=== PATIENT | female | born 1950 | race Caucasian/White ===

== ENCOUNTER → 2018-04-09 | Outpatient (CLI) | payer MEDICARE, BC | LOC: M WUC 14:35 | DX: M51.36 Other intervertebral disc degeneration, lumbar region (principal); M85.88 Other specified disorders of bone density and structure, other site | CPT/HCPCS: 72110; 87086 ==

== ENCOUNTER → 2021-05-15 | Outpatient (CLI) | payer MEDICARE, BC ==
--- NOTE | 2021-05-16 16:00 | DEXAMM ---
INDICATION: OTH DISORDER BONE DENSITY AND STRUCTURE, UNSPECIFIED SITE. COMPARISON: 03/15/2019, 07/02/2016. TECHNIQUE: Bone density was measured using dual-energy x-ray absorptiometry (DEXA). FINDINGS: AP SPINE L1-L4 BMD 1.174 g/cm2 Young Adult T-Score -0.2 Age Matched Z-Score 1.5. LT FEMUR, TOTAL BMD 0.838 g/cm2 Young Adult T-Score -1.3 Age Matched Z-Score 0.2. LT NECK BMD 0.725 g/cm2 Young Adult T-Score -2.3 Age Matched Z-Score -0.5. RT FEMUR, TOTAL BMD 0.854 g/cm2 Young Adult T-Score -1.2 Age Matched Z-Score 0.4. RT NECK BMD 0.733 g/cm2 Young Adult T-Score -2.2 Age Matched Z-Score -0.4. IMPRESSION: There is normal bone density of the spine. There is low bone density of the left hip. There is low bone density of the right hip. The density of the spine has increased 11.9% since the initial exam on 07/02/2016. The density of the spine increased 7.3% since most recent exam on 03/15/2019. The density of the left hip has decreased 4.1% since initial exam on 07/02/2016. The density of the left hip has decreased 0.5% since most recent exam on 03/15/2019. The density of the right hip has decreased 2.5% since the initial exam on 07/02/2016. The density of the right hip has increased 1.2% since the most recent exam on 03/15/2019. FOLLOW-UP: Recommendation for the next bone density exam: 2 years. <Electronically signed by Phil Bal > 05/16/21 1418
== END ==
LOC: M WHC 09:37
PROVIDERS: ATTEND Family Medicine
DX: M85.89 Other specified disorders of bone density and structure, multiple sites (principal)

== ENCOUNTER 2021-06-19 11:53 | Emergency (ER) | payer MEDICARE, BC ==
[~2021-06-19] VITALS: Ht 170.2 cm; Wt 62.8 kg
--- OUTSIDE RECORDS SUMMARY | 2021-06-19 11:59 | CCD | Continuity of Care Document ---
Author Author Jenny Humphries M.D. Organization Unknown Address [address] [place] [address] [address] [place] [address] Phone [phone] Care Team Providers Care Snout Puller Name Role Phone [facility] - [facility] Gyne[facility] AUTM [phone] HCP given AUTM Unavailable Dave Lee MD AUTM [phone] [facility] - Die Developer AUT [phone] Problems Active Problems Provider Date Essential hypertension Padilla Humphries M.D. Onset: 07/02/20 16 Degeneration of cervical intervertebral disc Padilla Humphries M.D. Onset: 07/02/2016 Dysthymia Padilla Humphries M.D. Onset: 07/02/2016 History of thromboembolism of vein Padilla Humphries M.D. 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 Onset: 12/10/2017 Pure hypercholesterolemia Padilla Humphries M.D. Onset: 01/12 Recurrent major depressive episodes Padilla Humphries M.D. On set: 04/09/2020 Social History Type Date Description Comments Sex Unknown Tobacco Use Start: Unknown End: Unknown Former Cigarette Smo ker quit smoking in 1999 Smoking Status Reviewed: 04/09/20 Former Cigarette Smoker quit smoking in 1999 Tobacco Use Start: Unknown End: Unknown Patient is a former smoker Allergies, Adverse Reactions, Alerts Description No Known Drug Allergies Medications Active Medications SIG Qnty Indications Ordering Provide r Date Risedronate Sodium 150mg Tablets take 1 tablet monthly, on an empty stomach, with a tall glass of water; do not eat or lie down for 30 minutes afterwards 3tabs M85.[address], M.D. 12/26/2019 Citalopram Hydrobromide 20mg Table ts Take 1/2 Tablet By Mouth Once Daily For Mood 45tabs F33.9 Padilla Humphries M.D. 10/03/2019 Cyclobenzaprine HCL 10mg Tablets 1 tablet 3x/day as needed for muscle spasms 30tabs Kj Humphries rd, M.D. 04/27/2018 Xarelto 20mg Tablets 1 by mouth every day; to prevent blood clots 90tabs I82.402 Padilla Humphries M.D. 07/2018 Z86.718 Z79.01 Intrarosa 6.5mg Insert Insert One Vaginal Insert Vaginally AT Bedtime 84units Padilla Humphries M.D . 11/09/2017 Lisinopril 20mg Tablets Take One Tablet By Mouth Every Morning For High Blood Pressure 90tabs I10 Padilla Mcqueen M.D. 06/29/2017 Vagifem 10mcg Tablets insert 1 tablet intravaginally 2x/wk; taper as able; for atrophic vaginitis 25tabs Padilla Humphries M.D. 05/07/2017 Atorvastatin Calcium 20mg Tablets Take One Tablet By Mouth Every Day To Reduce Cholesterol And Lower Risk Of Heart Disease 90tabs E78.00 Padilla Humphries M.D. 08/18/2016 Voltaren 1% Gel apply 1-2 grams 4x/day to left forefoot; for pain 300gm M79.672 Padilla Humphries M.D. Calcium Soft Chews 5 [id number]-vcc Chewtabs 2 daily Unknown History Medications Amoxicillin/Clavulanate Potassium 875-125mg Tablets 1 by mouth twice a day 20tabs L03.116 Jae Ramirez D. O. 02/14/2021 - 02/24/2021 Immunizations CPT Code Status Date Vaccine Reaction Lot # [id number] Given 10/26/2020 Sars-Cov-2 (Covi d-19) Pfizer Vac mRNA, LNP-S, PF, 30 mcg/ 0.3 mL 14663 Given 10/05/2020 Sars-Cov-2 (Covi d-19) Pfizer Vac mRNA, LNP-S, PF, 30 mcg/ 0.3 mL 63622 Given 07/31/2020 TB Intradermal Test 08/02/20 Read in office - neg; 0 [place] [address] Given 06/27/2020 Influenza Vaccin e Split Virus Preservative Free Im Use (hi-dose) [id number] U-Flu Given 05/31/2019 Influenza,Unspecified 94251 Given 12/01/2018 Shingrix Zoster (Shingles) Vaccine (HZV) Recomb,Subnit,Adjuvanted [id number] 15660 Given 05/11/2018 Shingrix Zoster (Shingles) Vaccine (HZV) Recomb,Subnit,Adjuvanted [id number] 81463 Given 01/12/2018 Pneumococcal Immunization [id number] 62490 Given 08/26/2016 Adacel or Boostrix, TDaP [id number] 48293 Given 07/02/2016 Prevnar 13 [id number] Vital Signs Date Vital Result Comment 04/09/2021 3:11pm BP Systolic 120 mmHg BP Diastolic 80 mmHg Heart Rate 68 /min reg Respiratory Rate 12 /min not laboured Body Temperature 98.5 F forehead Height 68 inches 5'8" w/sandal Weight 140.00 lb w/sandals BMI (Body Mass Index) 21.3 kg/m2 [place] Body Weight 140 lb 03/02/2021 9:48am Body Temperature 97.2 F Results Test Acquired Date Facility Test Result H/L Range Note Lipid Panel 04/26/2021 [facility] Triglycerides Level 33 mg/dL Normal <150 Cholesterol Level 155 mg/dL Normal <200 HDL Cholesterol 75 mg/dL Normal >40 LDL Cholesterol 73 mg/dL Normal <100 Non-HDL-C 80 mg/dL Normal Cholesterol Risk Ratio 2.066 Normal <5 Basic Metabolic Profile 04/26/2021 [facility] Glucose, Fasting 89 mg/dL Normal 70-100 Blood Urea Nitrogen 11 mg/dL Normal 7-18 Creatinine For GFR 0.63 mg/dL Normal 0.55-1.30 Glomerular Filtration Rate > 60.0 Normal >39 1 Sodium Level 137 mEq/L Normal 136-145 Potassium Serum 4.6 mEq/L Normal 3.5-5.1 Chloride Level 103 mEq/L Normal 98-107 Carbon Dioxide Level 30 mEq/L Normal 21-32 Anion Gap 4 mEq/L Low 8-16 Calcium Level 9.2 mg/dL Normal 8.8-10.2 Laboratory test finding 04/26/2021 [facility] Alt/SGPT 34 U/L Normal 12-78 Laboratory test finding 04/24/2021 In House Occult Blood, F I T negative 1 Units are mL/min/1.73 m2 Chronic Kidney Disease Staging per NKF: Stage I & II GFR >=60 Normal to Mildly Decreased Stage III GFR 30-59 Moderately Decreased Stage IV GFR 15-29 Severely Decreased Stage V GFR <15 Very Little GFR Left ESRD GFR <15 on FRONT END SPECIALIST Procedures Date Code Description Status 05/27/2021 87236 Phone Evaluation/Management By Martin kramer 21-30 Min Completed 04/09/2021 36513 Office/Outpatient Established Hi gh MDM 40-54 Min Completed 04/09/2021 66949 Electrocardiogram Complete Compl eted 04/09/202109815 Aspiration And/Or Injection Of G anglion Cyst (S) Any Location Completed 03/02/2021 24944 Office/Outpatient Established Mo d MDM 30-39 Min Completed 02/21/2021 [id number] Mammogram Completed 02/14/2021 74611 Office/Outpatient Established Lo w MDM 20-29 Min Completed 2003 [id number] Colonoscopy Completed Medical Devices Description No Information Available Encounters Type Date Location Provider Dx Diagnosis Office Visit 05/27/2021 9:15a Main Office Padilla Humphries M.D. M85. 80 Oth disrd of bone density and structure, unspecified site Office Visit 04/09/2021 2:45p Main Office Padilla Humphries M.D. Z01. 818 Encounter for other preprocedural examination I10 Essential (primary) hyperten rip Z86.718 Personal history of other ve nous thrombosis and embolism E78.00 Pure hypercholesterolemia, u nspecified M67.441 Ganglion, right hand Z68.21 Body mass index [BMI] 21.0-2 1.9, adult Z79.01 alf (current) use of a nticoagulants Office Visit 03/02/2021 9:30a Main Office Padilla Humphries M.D. M25. 512 Pain in left shoulder M85.80 Oth disrd of bone density an d structure, unspecified site Office Visit 02/14/2021 4:00p Main Office Jae Ramirez D.O. L03.1 16 Cellulitis of left lower limb S80.10xA Contusion of unspecified low er leg, initial encounter Assessments Date Code Description Provider 05/27/2021 M85.80 Other specified diso rders of bone density and structure, unspecified site Padilla Humphries M.D. 04/24/2021 Z12.11 Encounter for screening for nadeen gnant neoplasm of colon Padilla Humphries M.D. 04/09/2021 Z01.818 Encounter for other preprocedura l examination Padilla Humphries M.D. 04/09/2021 I10 Essential (primary) hypertension Padilla Humphries M.D. 04/09/2021 Z86.718 Personal history of other venous thrombosis and embolism Padilla Humphries M.D. 04/09/2021 E78.00 Pure hypercholesterolemia, unspe cified Padilla Humphries M.D. 04/09/2021 M67.441 Ganglion, right hand Fabrizio Humphries M.D. 04/09/2021 Z68.21 Body mass index [BMI] 21.0-21.9, adult Padilla Humphries M.D. 04/09/2021 Z79.01 alf (current) use of antic oagulants Padilla Humphries M.D. 04/05/2021 Z01.818 Encounter for other preprocedura l examination Padilla Humphries M.D. 04/05/2021 I10 Essential (primary) hypertension Padilla Humphries M.D. 04/05/2021 F33.9 Major depressive disorder, recur rent, unspecified Padilla Humphries M.D. 04/05/2021 E78.00 Pure hypercholesterolemia, unspe cified Padilla Humphries M.D. 04/05/2021 Z86.718 Personal history of other venous thrombosis and embolism Padilla Humphries M.D. 03/02/2021 M25.512 Pain in left shoulder Lissette Humphries M.D. 03/02/2021 M85.80 Other specified disorders of bon e density and structure, uns Padilla Humphries M.D. 02/14/2021 L03.116 Cellulitis of left lower limb So Jae guerra D.O. 02/14/2021 S80.10xA Contusion of unspecified lower l eg, initial encounter Jae Ramirez D.O. Plan of Treatment 05/27/2021 - Padilla Humphries M.D.* M85.80 Other specified disorders of bone density and structure, unspecified site* Comments:* While BMD at spine is better, and at R fem neck is unchanged, her L fem neck is considerably worse. However, since last prior DEXA 2yrs ago she essentially went 1 year of it w/o Tx. Discussed option of Denosumab/Prolia vs continuing status quo, and reassessing in 2yrs. Discussed potential inc cost w/ Prolia, need for i njections as well as need to folow it w/ a bisphosphonate b/o risk of rapid BMD loss and inc risk of vertebral fractures after completing Prolia. In the end we decided to continue w/ Prolia and re-evaluate in 18-24 months. If BMD not improving will continue Prolia then. Functional Status Description No Information Available Mental Status Description No Information Available Referrals Description No Information Available
--- OUTSIDE RECORDS SUMMARY | 2021-06-19 11:59 | CCD | Continuity of Care Document ---
Author Author Jenny Humphries M.D. Organization Unknown Address [address] [place] [address] [address] [place] [address] Phone [phone] Care Team Providers Care Bulldogger Name Role Phone [facility] [place] - Obstetric[facility] & Gynecology AUTM [phone] HCP given AUTM Unavailable Dave Lee MD AUTM [phone] [facility] - Geographical Historian AUT [phone] Problems Active Problems Provider Date Essential hypertension [...] End: Unknown Patient is a former smoker Allergies and adverse reactions Description No Known Drug Allergies Medications Active [...] Padilla Humphries M.D. Calcium Soft Chews 5 [id number]-[id number] Chewtabs 2 daily Unknown History Medications Amoxicillin/Clavulanate Potassium 875-125mg Tablets 1 by mouth twice a day 20tabs L03.116 Jae Ramirez D. O. 02/14/2021 - 02/24/2021 Immunizations CPT Code Status Date Vaccine Reaction Lot # [id number] Given 10/26/2020 Sars-Cov-2 (Covi d-19) Pfizer Vac mRNA, LNP-S, PF, 30 mcg/ 0.3 mL 31062 Given 10/05/2020 Sars-Cov-2 (Covi d-19) Pfizer Vac mRNA, LNP-S, PF, 30 mcg/ 0.3 mL 67094 Given 07/31/2020 TB Intradermal Test 08/02/20 Read in office - neg; 0 [place] [address] Given 06/27/2020 Influenza Vaccin e Split Virus Preservative Free Im Use (hi-dose) [id number] U-Flu Given 05/31/2019 Influenza,Unspecified 24990 Given 12/01/2018 Shingrix Zoster (Shingles) Vaccine (HZV) Recomb,Subnit,Adjuvanted [id number] 65941 Given 05/11/2018 Shingrix Zoster (Shingles) Vaccine (HZV) Recomb,Subnit,Adjuvanted [id number] 37657 Given 01/12/2018 Pneumococcal Immunization [id number] 27990 Given 08/26/2016 Adacel or Boostrix, TDaP [id number] 86241 Given 07/02/2016 Prevnar 13 [id number] Vital Signs Date Vital Result Comment 04/09/2021 3:11pm BP Systolic 120 mmHg BP Diastolic 80 mmHg Heart Rate 68 /min reg Respiratory Rate 12 /min not laboured Body Temperature 98.5 F forehead Height 68 inches 5'8" w/sandal Weight 140.00 lb w/sandals BMI (Body Mass Index) 21.3 kg/m2 [place] Body Weight 140 lb 03/02/2021 9:48am Body Temperature 97.2 F Results Test Acquired Date Facility Test Result H/L Range Note Lipid Panel 04/26/2021 [facility] Triglycerides Level 33 mg/dL Normal <150 Cholesterol Level 155 mg/dL Normal <200 HDL Cholesterol 75 mg/dL Normal >40 LDL Cholesterol 73 mg/dL Normal <100 Non-HDL-C 80 mg/dL Normal Cholesterol Risk Ratio 2.066 Normal <5 Basic Metabolic Profile 04/26/2021 [facility] Glucose, Fasting 89 mg/dL Normal 70-100 [...] mg/dL Normal 8.8-10.2 Laboratory test finding 04/26/2021 [facility] Alt/SGPT 34 U/L Normal 12-78 Laboratory test finding 04/24/2021 In House Occult Blood, F I T negative 1 Units are mL/min/1.73 m2 Chronic Kidney Disease Staging per NKF: Stage I & II GFR >=60 Normal to Mildly Decreased Stage III GFR 30-59 Moderately Decreased Stage IV GFR 15-29 Severely Decreased Stage V GFR <15 Very Little GFR Left ESRD GFR <15 on [employer]RAF[employer] DESIGN Procedures Date Code Description Status 06/18/2021 62388 Office/Outpatient Established Lo w MDM 20-29 Min Completed 05/27/2021 14288 Phone Evaluation/Management By Martin kramer 21-30 Min Completed 04/09/2021 75035 Office/Outpatient Established Hi gh MDM 40-54 Min Completed 04/09/2021 70690 Electrocardiogram Complete Compl eted 04/09/202158857 Aspiration And/Or Injection Of G anglion Cyst (S) Any Location Completed 03/02/2021 16968 Office/Outpatient Established Mo d MDM 30-39 Min Completed 02/21/2021 20521500 Mammogram Completed 02/14/2021 85014 Office/Outpatient Established Lo w MDM 20-29 Min Completed 2003 [id number] Colonoscopy Completed Medical Devices Description No Information Available Encounters Type Date Location Provider Dx Diagnosis Office Visit 06/18/2021 9:30a Main Office Padilla Humphries M.D. U07. 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 M25. 512 Pain in left shoulder M85.80 Oth disrd of bone density an d structure, unspecified site Office Visit 02/14/2021 4:00p Main Office Jae Ramirez D.O. L03.1 16 Cellulitis of left lower limb S80.10xA Contusion of unspecified low er leg, initial encounter Assessments Date Code Description Provider 06/18/2021 U07.1 Covid-19 Padilla Humphries M.D. 06/18/2021 I10 Essential (primary) hypertension Padilla Humphries M.D. 05/27/2021 M85.80 Other specified diso rders of [...] 21.0-21.9, adult Padilla Humphries M.D. 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 Plan of Treatment 06/18/2021 - Padilla Humphries M.D.* U07.1 Covid-19* Comments:* 71yo woman w/ HTN w/ mild COVID-19 Sxs. Will contact [facility] and try and arrange MAb Tx * I10 Essential (primary) hypertension Functional Status Description No Information Available Mental Status Description No Information Available Referrals Description No Information Available
--- OUTSIDE RECORDS SUMMARY | 2021-06-19 12:00 | CCD | Continuity of Care Document ---
Author Author Jenny Humphries M.D. Organization Unknown Address [address] [place] [address] [address] [place] [address] Phone [phone] Care Team Providers Care Director Of Retail Name Role Phone [facility] [place] - [facility] & Gynecology AUTM [phone] HCP given AUTM Unavailable Dave Lee MD AUTM [phone] [facility] - Express Manager AUT [phone] Problems Active Problems Provider Date Essential hypertension [...] Padilla Humphries M.D. Calcium Soft Chews 5 [id number]-[id number] Chewtabs 2 daily Unknown History Medications Amoxicillin/Clavulanate Potassium 875-125mg Tablets 1 by mouth twice a day 20tabs L03.116 Jae Ramirez D. O. 02/14/2021 - 02/24/2021 Immunizations CPT Code Status Date Vaccine Reaction Lot # [id number] Given 10/26/2020 Sars-Cov-2 (Covi d-19) Pfizer Vac mRNA, LNP-S, PF, 30 mcg/ 0.3 mL 84926 Given 10/05/2020 Sars-Cov-2 (Covi d-19) Pfizer Vac mRNA, LNP-S, PF, 30 mcg/ 0.3 mL 73714 Given 07/31/2020 TB Intradermal Test 08/02/20 Read in office - neg; 0 [place] [address] Given 06/27/2020 Influenza Vaccin e Split Virus Preservative Free Im Use (hi-dose) [id number] U-Flu Given 05/31/2019 Influenza,Unspecified 26688 Given 12/01/2018 Shingrix Zoster (Shingles) Vaccine (HZV) Recomb,Subnit,Adjuvanted [id number] [id number] Given 05/11/2018 Shingrix Zoster (Shingles) Vaccine (HZV) Recomb,Subnit,Adjuvanted [id number] 17192 Given 01/12/2018 Pneumococcal Immunization [id number] 75948 Given 08/26/2016 Adacel or Boostrix, TDaP [id number] 13916 Given 07/02/2016 Prevnar 13 [id number] Vital Signs Date Vital Result Comment 04/09/2021 3:11pm BP Systolic 120 mmHg BP Diastolic 80 mmHg Heart Rate 68 /min reg Respiratory Rate 12 /min not laboured Body Temperature 98.5 F forehead Height 68 inches 5'8" w/sandal Weight 140.00 lb w/sandals BMI (Body Mass Index) 21.3 kg/m2 [place] Body Weight 140 lb 03/02/2021 9:48am Body Temperature 97.2 F Results Test Acquired Date Facility Test Result H/L Range Note Lipid Panel 04/26/2021 [facility] Triglycerides Level 33 mg/dL Normal <150 Cholesterol Level 155 mg/dL Normal <200 HDL Cholesterol 75 mg/dL Normal >40 LDL Cholesterol 73 mg/dL Normal <100 Non-HDL-C 80 mg/dL Normal Cholesterol Risk Ratio 2.066 Normal <5 Basic Metabolic Profile 04/26/2021 [facility] Glucose, Fasting 89 mg/dL Normal 70-100 [...] mg/dL Normal 8.8-10.2 Laboratory test finding 04/26/2021 [facility] Alt/SGPT 34 U/L Normal 12-78 Laboratory test finding 04/24/2021 In House Occult Blood, F I T negative 1 Units are mL/min/1.73 m2 Chronic Kidney Disease Staging per NKF: Stage I & II GFR >=60 Normal to Mildly Decreased Stage III GFR 30-59 Moderately Decreased Stage IV GFR 15-29 Severely Decreased Stage V GFR <15 Very Little GFR Left ESRD GFR <15 on BUCKLE GLUER Procedures Date Code Description Status 04/09/2021 37977 Office/Outpatient Established Hi gh MDM 40-54 Min Completed 04/09/2021 13875 Electrocardiogram Complete Compl eted 04/09/202166316 Aspiration And/Or Injection Of G anglion Cyst (S) Any Location Completed 03/02/2021 15185 Office/Outpatient Established Mo d MDM 30-39 Min Completed 02/21/2021 [id number] Mammogram Completed 02/14/2021 51027 Office/Outpatient Established Lo w MDM 20-29 Min Completed 2003 [id number] Colonoscopy Completed Medical Devices Description No Information Available Encounters Type Date Location Provider Dx Diagnosis Office Visit 04/09/2021 2:45p Main Office Padilla Humphries M.D. Z01. 818 Encounter for other preprocedural examination I10 Essential (primary) hyperten rip Z86.718 Personal history of other ve nous thrombosis and embolism E78.00 Pure hypercholesterolemia, u nspecified M67.441 Ganglion, right hand Z68.21 Body mass index [BMI] 21.0-2 1.9, adult Z79.01 skilled nursing (current) use of a nticoagulants Office Visit 03/02/2021 9:30a Main Office Padilla Humphries M.D. M25. 512 Pain in left shoulder M85.80 Oth disrd of bone density an d structure, unspecified site Office Visit 02/14/2021 4:00p Main Office Jae Ramirze D.O. L03.1 16 Cellulitis of left lower limb S80.10xA Contusion of unspecified low er leg, initial encounter Assessments Date Code Description Provider 04/24/2021 Z12.11 Encounter for screening for nadeen [...] 21.0-21.9, adult Padilla Humphries M.D. 04/09/2021 Z79.01 skilled nursing (current) use of antic oagulants Padilla Humphries [...] encounter Jae Ramirez D.O. Plan of Treatment 04/09/2021 - Padilla Humphries M.D.* Z01.818 Encounter for other preprocedural examination* Comments:* She has an unremarkable EKG.Will arange labs to be done in near future.WRT stopping Xarelto perioperatively...assuming the procedure carries a minimal bleeding risk, holding her medication the day of the procedure and starting the day after the procedure should suffice. If the surgeon considers this not as a minimal risk but rather low risk bleeding procedure, then holding Xarelto the day prior and the day of the procedure and resuming 1 day post op is advised. The surgeon should advise pt when to stop her medication dependent on their assessment of bleeding risk with the planned procedure. Addendum 04/28/21:Labs from 04/26/21 included normal BMP, normal ALT. A CBC was requested but as of this time no result was received. In any case I do not think it is needed prior to the planned procedure.Pt is medically stable and cleared for the upcoming surgery. * I10 Essential (primary) hypertension* Comments:* Controlled. Continue current Tx. * Z86.718 Personal history of other venous thrombosis and embolism * E78.00 Pure hypercholesterolemia, unspecified * M67.441 Ganglion, right hand* Comments:* Counseled re Dx. Advised observation given size and paucity of Sxs, and after discussion on very high rates of recurrences. She insisted on trying drainage, understanding risk of infection.Procedure note: After an alcohol prep and local anesthetic w/ topical ethyl chloride spray, a 20G needle was used to enter the cyst from the radial side, then syringe suction and pressure were used to drain the cyst wc flattened nicely. Tolerated well. Minimal bleeding. Pressure bandage applied. RTO prn. 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
--- OUTSIDE RECORDS SUMMARY | 2021-06-19 12:00 | CCD | Continuity of Care Document ---
Author Author Jenny Humphries M.D. Organization Unknown Address [address] [place] [address] [address] [place] [address] Phone [phone] Care Team Providers Care Button And Buckle Maker Name Role Phone OB-Lawn Care Specialist [facility] [place] - Obst[facility] & Gynecology AUTM [phone] HCP given AUTM Unavailable Dave Lee MD AUTM [phone] [facility] - Measuring Machine Operator AUT [phone] Problems Active Problems Provider Date Essential hypertension [...] for 30 minutes afterwards 3tabs M85.[address], M.D. 12/26/2019 Citalopram Hydrobromide 20mg Table [...] Padilla Humphries M.D. Calcium Soft Chews 5 85-3-6216-91iz-Hlv-gyf Chewtabs 2 daily Unknown History Medications Amoxicillin/Clavulanate Potassium 875-125mg Tablets 1 by mouth twice a day 20tabs L03.116 Jae Ramirez D. O. 02/14/2021 - 02/24/2021 Immunizations CPT Code Status Date Vaccine Reaction Lot # [id number] Given 10/26/2020 Sars-Cov-2 (Covi d-19) Pfizer Vac mRNA, LNP-S, PF, 30 mcg/ 0.3 mL 20084 Given 10/05/2020 Sars-Cov-2 (Covi d-19) Pfizer Vac mRNA, LNP-S, PF, 30 mcg/ 0.3 mL 44824 Given 07/31/2020 TB Intradermal Test 08/02/20 Read in office - neg; 0 [place] [address] Given 06/27/2020 Influenza Vaccin e Split Virus Preservative Free Im Use (hi-dose) [id number] U-Flu Given 05/31/2019 Influenza,Unspecified 80618 Given 12/01/2018 Shingrix Zoster (Shingles) Vaccine (HZV) Recomb,Subnit,Adjuvanted [id number] 89085 Given 05/11/2018 Shingrix Zoster (Shingles) Vaccine (HZV) Recomb,Subnit,Adjuvanted [id number] 43556 Given 01/12/2018 Pneumococcal Immunization [id number] 29488 Given 08/26/2016 Adacel or Boostrix, TDaP [id number] 77868 Given 07/02/2016 Prevnar 13 [id number] Vital Signs Date Vital Result Comment 04/09/2021 3:11pm BP Systolic 120 mmHg BP Diastolic 80 mmHg Heart Rate 68 /min reg Respiratory Rate 12 /min not laboured Body Temperature 98.5 F forehead Height 68 inches 5'8" w/sandal Weight 140.00 lb w/sandals BMI (Body Mass Index) 21.3 kg/m2 [place] Body Weight 140 lb 03/02/2021 9:48am Body Temperature 97.2 F Results Test Acquired Date Facility Test Result H/L Range Note Lipid Panel 04/26/2021 [facility] Triglycerides Level 33 mg/dL Normal <150 Cholesterol Level 155 mg/dL Normal <200 HDL Cholesterol 75 mg/dL Normal >40 LDL Cholesterol 73 mg/dL Normal <100 Non-HDL-C 80 mg/dL Normal Cholesterol Risk Ratio 2.066 Normal <5 Basic Metabolic Profile 04/26/2021 [facility] Glucose, Fasting 89 mg/dL Normal 70-100 Blood [...] mg/dL Normal 8.8-10.2 Laboratory test finding 04/26/2021 [facility] Alt/SGPT 34 U/L Normal 12-78 Laboratory test finding 04/24/2021 In House Occult Blood, F I T negative 1 Units are mL/min/1.73 m2 Chronic Kidney Disease Staging per NKF: Stage I & II GFR >=60 Normal to Mildly Decreased Stage III GFR 30-59 Moderately Decreased Stage IV GFR 15-29 Severely Decreased Stage V GFR <15 Very Little GFR Left ESRD GFR <15 on GENERATOR ASSEMBLER Procedures Date Code Description Status 05/27/2021 39351 Phone Evaluation/Management By Martin kramer 21-30 Min Completed 04/09/2021 02229 Office/Outpatient Established Hi gh MDM 40-54 Min Completed 04/09/2021 95993 Electrocardiogram Complete Compl eted 04/09/202191585 Aspiration And/Or Injection Of G anglion Cyst (S) Any Location Completed 03/02/2021 17820 Office/Outpatient Established Mo d MDM 30-39 Min Completed 02/21/2021 [id number] Mammogram Completed 02/14/2021 54688 Office/Outpatient Established Lo w MDM 20-29 Min Completed 2003 [id number] Colonoscopy Completed Medical Devices Description No Information [...] bone density and structure, unspecified site* Comments:* Discussed option o fProlia vs continuing status quo Functional Status Description No Information Available Mental Status Description No Information Available Referrals Description No Information Available
--- OUTSIDE RECORDS SUMMARY | 2021-06-19 12:00 | CCD | Continuity of Care Document ---
Author Author Jenny Humphries M.D. Organization Unknown Address [address] [place] [address] [address] [place] [address] Phone [phone] Care Team Providers Care Lens Coating Technician Name Role Phone OB-Organ Pipe Voicer [facility] [place] - Obstetrics & Gynecology AUTM [phone] HCP given AUTM Unavailable Dave Lee MD AUTM [phone] [facility] - Staff Home Therapy Rn AUTM [phone] Problems Active Problems Provider Date Essential hypertension [...] Padilla Humphries M.D. Calcium Soft Chews 5 51-2-6732-26te-Oor-kky Chewtabs 2 daily Unknown History Medications Amoxicillin/Clavulanate Potassium 875-125mg Tablets 1 by mouth twice a day 20tabs L03.116 Jae Ramirez D. O. 02/14/2021 - 02/24/2021 Immunizations CPT Code Status Date Vaccine Reaction Lot # [id number] Given 10/26/2020 Sars-Cov-2 (Covi d-19) Pfizer Vac mRNA, LNP-S, PF, 30 mcg/ 0.3 mL 80023 Given 10/05/2020 Sars-Cov-2 (Covi d-19) Pfizer Vac mRNA, LNP-S, PF, 30 mcg/ 0.3 mL 31195 Given 07/31/2020 TB Intradermal Test 08/02/20 Read in office - neg; 0 [place] [address] Given 06/27/2020 Influenza Vaccin e Split Virus Preservative Free Im Use (hi-dose) [id number] U-Flu Given 05/31/2019 Influenza,Unspecified 50071 Given 12/01/2018 Shingrix Zoster (Shingles) Vaccine (HZV) Recomb,Subnit,Adjuvanted [id number] 09963 Given 05/11/2018 Shingrix Zoster (Shingles) Vaccine (HZV) Recomb,Subnit,Adjuvanted [id number] 05816 Given 01/12/2018 Pneumococcal Immunization [id number] 23192 Given 08/26/2016 Adacel or Boostrix, TDaP [id number] 87961 Given 07/02/2016 Prevnar 13 [id number] Vital Signs Date Vital Result Comment 04/09/2021 3:11pm BP Systolic 120 mmHg BP Diastolic 80 mmHg Heart Rate 68 /min reg Respiratory Rate 12 /min not laboured Body Temperature 98.5 F forehead Height 68 inches 5'8" w/sandal Weight 140.00 lb w/sandals BMI (Body Mass Index) 21.3 kg/m2 [place] Body Weight 140 lb 03/02/2021 9:48am Body Temperature 97.2 F Results Description No Information Available Procedures Date Code Description Status 04/09/2021 35755 Office/Outpatient Established Hi gh MDM 40-54 Min Completed 04/09/2021 73749 Electrocardiogram Complete Compl eted 04/09/2021 Aspiration And/Or Injection Of G anglion Cyst (S) Any Location Completed 03/02/2021 18526 Office/Outpatient Established Mo d MDM 30-39 Min Completed 02/21/2021 [id number] Mammogram Completed 02/14/2021 04594 Office/Outpatient Established Lo w MDM 20-29 Min Completed 2003 [id number] Colonoscopy Completed Medical Devices Description No Information Available Encounters Type Date Location Provider Dx Diagnosis Office Visit 04/09/2021 2:45p Main Office Padilla Humphries M.D. Z01. 818 Encounter for other preprocedural examination I10 Essential (primary) hyperten rip Z86.718 Personal history of other ve nous thrombosis and embolism E78.00 Pure hypercholesterolemia, u nspecified M67.441 Ganglion, right hand Z68.21 Body mass index [BMI] 21.0-2 1.9, adult Office Visit 03/02/2021 9:30a Main Office Padilla Humphries M.D. M25. 512 Pain in left shoulder M85.80 Oth disrd of bone density an d structure, unspecified site Office Visit 02/14/2021 4:00p Main Office Jae Ramirez D.O. L03.1 16 Cellulitis of left lower limb S80.10xA Contusion of unspecified low er leg, initial encounter Assessments Date Code Description Provider 04/09/2021 Z01.818 Encounter for other preprocedura l examination Padilla Humphries M.D. 04/09/2021 I10 Essential (primary) hypertension Padilla Humphries M.D. 04/09/2021 Z86.718 Personal history of other venous thrombosis and embolism Padilla Humphries M.D. 04/09/2021 E78.00 Pure hypercholesterolemia, unspe cified Padilla Humphries M.D. 04/09/2021 M67.441 Ganglion, right hand Fabrizio Humphries M.D. 04/09/2021 Z68.21 Body mass index [BMI] 21.0-21.9, adult Padilla Humphries M.D. 04/05/2021 Z01.818 Encounter for [...] of bleeding risk with the planned procedure. * I10 Essential (primary) hypertension* Comments:* Controlled. [...] Z68.21 Body mass index [BMI] 21.0-21.9, adult Functional Status Description No Information Available Mental Status Description No Information Available Referrals Description No Information Available
--- OUTSIDE RECORDS SUMMARY | 2021-06-19 12:00 | CCD | Continuity of Care Document ---
Author Author Jenny Humphries M.D. Organization Unknown Address [address] [place] [address] [address] [place] [address] Phone [phone] Care Team Providers Care Inspector Balance Truing Name Role Phone OB-Pulp Press Tender [facility] [place] - Ob[facility] & Gynecology AUTM [phone] HCP given AUTM Unavailable Dave Lee MD AUTM [phone] [facility] - Scale And Skip Car Operator AUTM [phone] Problems Active Problems Provider Date Essential hypertension [...] to prevent blood clots 90tabs I82.402 Padilla Hmuphries M.D. 07/2018 Z86.718 Z79.01 [place]arosa 6.5mg Insert [...] Padilla Humphries M.D. Calcium Soft Chews 5 65-7-3148-33yi-Tdh-ame Chewtabs 2 daily Unknown History Medications Amoxicillin/Clavulanate Potassium 875-125mg Tablets 1 by mouth twice a day 20tabs L03.116 Jae Ramirez D. O. 02/14/2021 - 02/24/2021 Immunizations CPT Code Status Date Vaccine Reaction Lot # [id number] Given 10/26/2020 Sars-Cov-2 (Covi d-19) Pfizer Vac mRNA, LNP-S, PF, 30 mcg/ 0.3 mL 54194 Given 10/05/2020 Sars-Cov-2 (Covi d-19) Pfizer Vac mRNA, LNP-S, PF, 30 mcg/ 0.3 mL 79510 Given 07/31/2020 TB Intradermal Test 08/02/20 Read in office - neg; 0 [place] [address] Given 06/27/2020 Influenza Vaccin e Split Virus Preservative Free Im Use (hi-dose) [id number] U-Flu Given 05/31/2019 Influenza,Unspecified 56599 Given 12/01/2018 Shingrix Zoster (Shingles) Vaccine (HZV) Recomb,Subnit,Adjuvanted [id number] 99261 Given 05/11/2018 Shingrix Zoster (Shingles) Vaccine (HZV) Recomb,Subnit,Adjuvanted [id number] 11427 Given 01/12/2018 Pneumococcal Immunization [id number] 43511 Given 08/26/2016 Adacel or Boostrix, TDaP [id number] 38423 Given 07/02/2016 Prevnar 13 [id number] Vital Signs Date Vital Result Comment 04/09/2021 3:11pm BP Systolic 120 mmHg BP Diastolic 80 mmHg Body Temperature 98.5 F forehead Height 68 inches 5'8" w/sandal Weight 140.00 lb w/sandals BMI (Body Mass Index) 21.3 kg/m2 [place] Body Weight 140 lb 03/02/2021 9:48am Body Temperature 97.2 F Results Description No Information Available Procedures Date Code Description Status 04/09/2021 20511 Office/Outpatient Established Hi gh MDM 40-54 Min Completed 04/09/2021 52392 Electrocardiogram Complete Compl eted 04/09/202145398 Aspiration And/Or Injection Of G anglion Cyst (S) Any Location Completed 03/02/2021 98236 Office/Outpatient Established Mo d MDM 30-39 Min Completed 02/21/2021 [id number] Mammogram Completed 02/14/2021 50106 Office/Outpatient Established Lo w MDM 20-29 Min Completed 2003 [id number] Colonoscopy Completed Medical Devices Description No Information Available Encounters Type Date Location Provider Dx Diagnosis Office Visit 04/09/2021 2:45p Main Office Padilla Humphries M.D. Z68. 21 Body mass index [BMI] 21.0-21.9, adult Z01.818 Encounter for other preproce dural examination Office Visit 03/02/2021 9:30a Main Office Padilla Humphries M.D. M25. 512 Pain in left shoulder M85.80 Oth disrd of bone density an d structure, unspecified site Office Visit 02/14/2021 4:00p Main Office Jae Ramirez D.O. L03.1 16 Cellulitis of left lower limb S80.10xA Contusion of unspecified low er leg, initial encounter Assessments Date Code Description Provider 04/09/2021 Z68.21 Body mass index [BMI] 21.0-21.9, adult Padilla Humphries M.D. 04/09/2021 Z01.818 Encounter for other preprocedura l examination Padilla Humphries M.D. 04/05/2021 Z01.818 Encounter for [...] encounter Jae Ramirez D.O. Plan of Treatment No Information Available Functional Status Description No Information Available Mental Status Description No Information Available Referrals Description No Information Available
--- OUTSIDE RECORDS SUMMARY | 2021-06-19 12:00 | CCD ---
Continuity of Care Document (CCD) Created on: 04/24/2021 Jenny Brown External Reference #: [id number] : [id number] Sex: Female Author Author Jenny Humphries M.D. Organization Unknown Address [address] [place] [address] [address] [place] [address] Phone [phone] Care Team Providers Care Scene And Lighting Design Lecturer Name Role Phone OB-Unpaid Intern [facility] [place] - Obstetrics & Gynecology AUTM [phone] HCP given AUTM Unavailable Dave Lee MD AUTM [phone] [facility] - Computer Security Coordinator AUT [phone] Problems Active Problems Provider Date Essential hypertension [...] Padilla Humphries M.D. Calcium Soft Chews 5 11-1-9861-19jz-Wed-ejl Chewtabs 2 daily Unknown History Medications Amoxicillin/Clavulanate Potassium 875-125mg Tablets 1 by mouth twice a day 20tabs L03.116 Jae Ramirez D. O. 02/14/2021 - 02/24/2021 Immunizations CPT Code Status Date Vaccine Reaction Lot # [id number] Given 10/26/2020 Sars-Cov-2 (Covi d-19) Pfizer Vac mRNA, LNP-S, PF, 30 mcg/ 0.3 mL 56944 Given 10/05/2020 Sars-Cov-2 (Covi d-19) Pfizer Vac mRNA, LNP-S, PF, 30 mcg/ 0.3 mL 32884 Given 07/31/2020 TB Intradermal Test 08/02/20 Read in office - neg; [place] [address] Given 06/27/2020 Influenza Vaccin e Split Virus Preservative Free Im Use (hi-dose) [id number] U-Flu Given 05/31/2019 Influenza,Unspecified 27575 Given 12/01/2018 Shingrix Zoster (Shingles) Vaccine (HZV) Recomb,Subnit,Adjuvanted [id number] 80130 Given 05/11/2018 Shingrix Zoster (Shingles) Vaccine (HZV) Recomb,Subnit,Adjuvanted [id number] 45563 Given 01/12/2018 Pneumococcal Immunization [id number] 50890 Given 08/26/2016 Adacel or Boostrix, TDaP [id number] 38516 Given 07/02/2016 Prevnar 13 [id number] Vital Signs Date Vital Result Comment 04/09/2021 3:11pm BP Systolic 120 mmHg BP Diastolic 80 mmHg Heart Rate 68 /min reg Respiratory Rate 12 /min not laboured Body Temperature 98.5 F forehead Height 68 inches 5'8" w/sandal Weight 140.00 lb w/sandals BMI (Body Mass Index) 21.3 kg/m2 [place] Body Weight 140 lb 03/02/2021 9:48am Body Temperature 97.2 F Results Test Acquired Date Facility Test Result H/L Range Note Laboratory test finding 04/24/2021 In House Occult Blood, F I T negative Procedures Date Code Description Status 04/09/2021 98275 Office/Outpatient Established Hi gh MDM 40-54 Min Completed 04/09/2021 29612 Electrocardiogram Complete Compl eted 04/09/202177171 Aspiration And/Or Injection Of G anglion Cyst (S) Any Location Completed 03/02/2021 83196 Office/Outpatient Established Mo d MDM 30-39 Min Completed 02/21/2021 [id number] Mammogram Completed 02/14/2021 25020 Office/Outpatient Established Lo w MDM 20-29 Min Completed 2003 [id number] Colonoscopy Completed Medical Devices Description No Information Available Encounters Type Date Location Provider Dx Diagnosis Office Visit 04/09/2021 2:45p Main Office Silcoff, Padilla, M.D. Z01. 818 Encounter for other preprocedural examination I10 Essential (primary) hyperten rip Z86.718 Personal history of other ve nous thrombosis and embolism E78.00 Pure hypercholesterolemia, u nspecified M67.441 Ganglion, right hand Z68.21 Body mass index [BMI] 21.0-2 1.9, adult Z79.01 termite treater (current) use of a nticoagulants Office Visit [...] Humphries M.D. 04/09/2021 I10 Essential (primary) hypertension Paidlla Humphries M.D. 04/09/2021 Z86.718 Personal history of other venous thrombosis and embolism Padilla Humphries M.D. 04/09/2021 E78.00 Pure hypercholesterolemia, unspe cified Padilla Humphries M.D. 04/09/2021 M67.441 Ganglion, right hand Fabrizio Humphries M.D. 04/09/2021 Z68.21 Body mass index [BMI] 21.0-21.9, adult Padilla Humphries M.D. 04/09/2021 Z79.01 detention (current) use of antic oagulants Padilla Humphries [...] mass index [BMI] 21.0-21.9, adult * Z79.01 termite treater (current) use of anticoagulants Functional Status Description No Information Available Mental Status Description No Information Available Referrals Description No Information Available
--- OUTSIDE RECORDS SUMMARY | 2021-06-19 12:00 | CCD | Continuity of Care Document ---
Author Author Jenny Humphries M.D. Organization Unknown Address [address] [place] [address] [address] [place] [address] Phone [phone] Care Team Providers Care Medical Practice Manager Name Role Phone OB-Circuit Design Engineer [facility] [place] - Obstetrics & Gynecology AUTM [phone] HCP given AUTM Unavailable Dave Lee MD AUTM [phone] [facility] - Portable Irrigation Operator AUT [phone] Problems Active Problems Provider Date Essential hypertension Padilla Humphries M.D. Onset: 07/02/20 16 Degeneration of cervical intervertebral disc Padlila Humphries M.D. Onset: 07/02/2016 Dysthymia Padilla Humphries [...] Padilla Humphries M.D. Calcium Soft Chews 5 35-6-9134-53fp-Lza-hfc Chewtabs 2 daily Unknown History Medications Amoxicillin/Clavulanate Potassium 875-125mg Tablets 1 by mouth twice a day 20tabs L03.116 Jae Ramirez D. O. 02/14/2021 - 02/24/2021 Immunizations CPT Code Status Date Vaccine Reaction Lot # [id number] Given 10/26/2020 Sars-Cov-2 (Covi d-19) Pfizer Vac mRNA, LNP-S, PF, 30 mcg/ 0.3 mL 91509 Given 10/05/2020 Sars-Cov-2 (Covi d-19) Pfizer Vac mRNA, LNP-S, PF, 30 mcg/ 0.3 mL 30660 Given 07/31/2020 TB Intradermal Test 08/02/20 Read in office - neg; 0 [place] [address] Given 06/27/2020 Influenza Vaccin e Split Virus Preservative Free Im Use (hi-dose) [id number] U-Flu Given 05/31/2019 Influenza,Unspecified 12615 Given 12/01/2018 Shingrix Zoster (Shingles) Vaccine (HZV) Recomb,Subnit,Adjuvanted [id number] 71367 Given 05/11/2018 Shingrix Zoster (Shingles) Vaccine (HZV) Recomb,Subnit,Adjuvanted [id number] 81104 Given 01/12/2018 Pneumococcal Immunization [id number] 91796 Given 08/26/2016 Adacel or Boostrix, TDaP [id number] 52993 Given 07/02/2016 Prevnar 13 [id number] Vital Signs Date Vital Result Comment 04/09/2021 3:11pm BP Systolic 120 mmHg BP Diastolic 80 mmHg Heart Rate 68 /min reg Respiratory Rate 12 /min not laboured Body Temperature 98.5 F forehead Height 68 inches 5'8" w/sandal Weight 140.00 lb w/sandals BMI (Body Mass Index) 21.3 kg/m2 [place] Body Weight 140 lb 03/02/2021 9:48am Body Temperature 97.2 F Results Test Acquired Date Facility Test Result H/L Range Note Lipid Panel 04/26/2021 [facility] Triglycerides Level 33 mg/dL Normal <150 Cholesterol Level 155 mg/dL Normal <200 HDL Cholesterol 75 mg/dL Normal >40 LDL Cholesterol 73 mg/dL Normal <100 Non-HDL-C 80 mg/dL Normal Cholesterol Risk Ratio 2.066 Normal <5 Basic Metabolic Profile 04/26/2021 [facility] Glucose, Fasting 89 mg/dL Normal 70-100 [...] mg/dL Normal 8.8-10.2 Laboratory test finding 04/26/2021 [facility] Alt/SGPT 34 U/L Normal 12-78 Laboratory test finding 04/24/2021 In House Occult Blood, F I T negative 1 Units are mL/min/1.73 m2 Chronic Kidney Disease Staging per NKF: Stage I & II GFR >=60 Normal to Mildly Decreased Stage III GFR 30-59 Moderately Decreased Stage IV GFR 15-29 Severely Decreased Stage V GFR <15 Very Little GFR Left ESRD GFR <15 on SEED AND FERTILIZER SPECIALIST Procedures Date Code Description Status 04/09/2021 41284 Office/Outpatient Established Hi gh MDM 40-54 Min Completed 04/09/2021 02172 Electrocardiogram Complete Compl eted 04/09/202112090 Aspiration And/Or Injection Of G anglion Cyst (S) Any Location Completed 03/02/2021 28467 Office/Outpatient Established Mo d MDM 30-39 Min Completed 02/21/2021 [id number] Mammogram Completed 02/14/2021 33312 Office/Outpatient Established Lo w MDM 20-29 Min Completed 2003 [id number] Colonoscopy Completed Medical Devices Description No Information [...] mass index [BMI] 21.0-2 1.9, adult Z79.01 halfway (current) use of a nticoagulants Office Visit [...] 21.0-21.9, adult Padilla Humphries M.D. 04/09/2021 Z79.01 halfway (current) use of antic oagulants Padilla Humphries [...] mass index [BMI] 21.0-21.9, adult * Z79.01 halfway (current) use of anticoagulants Functional Status Description No Information Available Mental Status Description No Information Available Referrals Description No Information Available
--- OUTSIDE RECORDS SUMMARY | 2021-06-19 12:00 | CCD | Continuity of Care Document ---
Author Author Jenny Humphries M.D. Organization Unknown Address [address] [place] [address] [address] [place] [address] Phone [phone] Care Team Providers Care Outreach Librarian Name Role Phone OB-Livestock Brands Inspector [facility] [place] - Ob[facility]etric[facility] & Gynecology AUTM [phone] HCP given AUTM Unavailable Dave Lee MD AUTM [phone] [facility]ide [facility] - Director Mba AUTM [phone] Problems Active Problems Provider Date Essential hypertension [...] Padilla Humphries M.D. Calcium Soft Chews 5 90-7-6778-27bt-Llg-isl Chewtabs 2 daily Unknown History Medications Amoxicillin/Clavulanate Potassium 875-125mg Tablets 1 by mouth twice a day 20tabs L03.116 Jae Ramirez D. O. 02/14/2021 - 02/24/2021 Immunizations CPT Code Status Date Vaccine Reaction Lot # [id number] Given 10/26/2020 Sars-Cov-2 (Covi d-19) Pfizer Vac mRNA, LNP-S, PF, 30 mcg/ 0.3 mL 39121 Given 10/05/2020 Sars-Cov-2 (Covi d-19) Pfizer Vac mRNA, LNP-S, PF, 30 mcg/ 0.3 mL 24803 Given 07/31/2020 TB Intradermal Test 08/02/20 Read in office - neg; 0 [place] [address] Given 06/27/2020 Influenza Vaccin e Split Virus Preservative Free Im Use (hi-dose) [id number] U-Flu Given 05/31/2019 Influenza,Unspecified 76361 Given 12/01/2018 Shingrix Zoster (Shingles) Vaccine (HZV) Recomb,Subnit,Adjuvanted [id number] 34755 Given 05/11/2018 Shingrix Zoster (Shingles) Vaccine (HZV) Recomb,Subnit,Adjuvanted [id number] 80503 Given 01/12/2018 Pneumococcal Immunization [id number] 92142 Given 08/26/2016 Adacel or Boostrix, TDaP [id number] 60237 Given 07/02/2016 Prevnar 13 [id number] Vital Signs Date Vital Result Comment 04/09/2021 3:11pm BP Systolic 120 mmHg BP Diastolic 80 mmHg Body Temperature 98.5 F forehead Height 68 inches 5'8" w/sandal Weight 140.00 lb w/sandals BMI (Body Mass Index) 21.3 kg/m2 [place] Body Weight 140 lb 03/02/2021 9:48am Body Temperature 97.2 F Results Description No Information Available Procedures Date Code Description Status 04/09/2021 73994 Office/Outpatient Established Hi gh MDM 40-54 Min Completed 04/09/2021 41566 Electrocardiogram Complete Compl eted 04/09/202154427 Aspiration And/Or Injection Of G anglion Cyst (S) Any Location Completed 03/02/2021 98346 Office/Outpatient Established Mo d MDM 30-39 Min Completed 02/21/2021 [id number] Mammogram Completed 02/14/2021 70626 Office/Outpatient Established Lo w MDM 20-29 Min Completed 2003 [id number] Colonoscopy Completed Medical Devices Description No Information [...]
--- OUTSIDE RECORDS SUMMARY | 2021-06-19 12:00 | CCD | Continuity of Care Document ---
Author Author Jenny MUNSON MD Organization Unknown Address [address] [place] [address] Phone [phone] Care Team Providers Care Manager User Experience Name Role Phone Padilla Humphries MD AUTM [phone] Problems Active Problems Provider Date Acquired hallux rigidus Dave Munson MD Onset: 0 Hammer toe Dave Munson MD Onset: 04/02/2020 Current tear of medial cartilage AND/OR meniscus of knee Rickie Cruz MD Onset: 11/13/2020 Tear of medial meniscus of knee Sly Cruz MD Onset : 01/15/2021 Social History Type Date Description Comments Sex Unknown ETOH Use Occasionally consumes alcohol Tobacco Use Start: Unknown End: Unknown Patient is a former smoker Smoking Status Reviewed: 03/11/21 Patient is a former smoker Exercise Type/Frequency Exercises sporadically Allergies, Adverse Reactions, Alerts Description No Known Drug Allergies Medications Active Medications SIG Qnty Indications Ordering Provide r Date Lisinopril 20mg Tablets 1 by mouth every day Unknown Atorvastatin Calcium 20mg Tablets take 1 tablet at bedtime Unknown Xarelto 20mg Tablets Padilla Humphries MD Fluoxetine HCL 10mg Capsules 1 by mouth every day Unknown Medications Administered in Office Medication SIG Qnty Indications Ordering Provider Date Depomedrol 40MG Injection Sly Cruz MD 10/26/2018 Depomedrol 40MG Injection Kianna Flowers M.D. 09/18/2016 Immunizations Description No Information Available Vital Signs Date Vital Result Comment 03/11/2021 2:44pm Height 67.5 inches 5'7.50" Weight 142.00 lb Heart Rate 83 /min BP Systolic 128 mmHg BP Diastolic 84 mmHg Respiratory Rate 18 /min Body Temperature 97.7 F Pain Level 0 BMI (Body Mass Index) 21.9 kg/m2 01/15/2021 1:06pm Height 67.5 inches 5'7.50" Weight 143.00 lb Heart Rate 65 /min BP Systolic 120 mmHg BP Diastolic 62 mmHg Body Temperature 98.0 F Pain Level 1 BMI (Body Mass Index) 22.1 kg/m2 Results Description No Information Available Procedures Date Code Description Status 03/11/2021 20807 Office/Outpatient Established Mo d MDM 30-39 Min Completed 01/15/2021 46857 Office/Outpatient Established Mo d MDM 30-39 Min Completed 11/13/2020 55691 Office/Outpatient Established Lo w MDM 20-29 Min Completed Medical Devices Description No Information Available Encounters Type Date Location Provider Dx Diagnosis Office Visit 03/11/2021 2:15p [facility] Elder jiménez MD M20.22 Hallux rigidus, left foot M75.42 Impingement syndrome of left shoulder Office Visit 01/15/2021 1:00p [facility] [place] B marcie Cruz MD M17.11 Unilateral primary osteoarth ritis, right knee M23.303 Oth meniscus derangements, u nsp medial meniscus, right knee Office Visit 11/13/2020 2:45p [facility] [place] B marcie Cruz MD M23.203 Derang of unsp medial menisc us due to old tear/inj, r knee Assessments Date Code Description Provider 03/11/2021 M20.22 Hallux rigidus, left foot [facility] Macario koenig MD 03/11/2021 M75.42 Impingement syndrome of left guillaume ulder Dave Munson MD 01/15/2021 M17.11 Unilateral primary osteoarthriti s, right knee Sly Cruz MD 01/15/2021 M23.303 Other meniscus deran gements, unspecified medial meniscus, right knee Sly Cruz MD 11/13/2020 M23.203 Derangement of unspe cified medial meniscus due to old tear or injury, right knee Sly Cruz MD Plan of Treatment 03/11/2021 - Dave Munson MD* M20.22 Hallux rigidus, left foot* Follow up:* Follow Up: As needed * M75.42 Impingement syndrome of left shoulder Functional Status Description No Information Available Mental Status Description No Information Available Referrals Description No Information Available
--- OUTSIDE RECORDS SUMMARY | 2021-06-19 12:00 | CCD | Continuity of Care Document ---
Author Author Jenny Humphries M.D. 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 Calcium Soft Chews 5 [id number] Chewtabs 2 daily Unknown History Medications Amoxicillin/Clavulanate Potassium 875-125mg Tablets 1 by mouth twice a day 20tabs L03.116 Jae Ramirez D. O. 02/14/2021 - 02/24/2021 Immunizations CPT Code Status Date Vaccine Reaction Lot # [id number] Given 10/26/2020 Sars-Cov-2 (Covi d-19) Pfizer Vac mRNA, LNP-S, PF, 30 mcg/ 0.3 mL 24110 Given 10/05/2020 Sars-Cov-2 (Covi d-19) Pfizer Vac mRNA, LNP-S, PF, 30 mcg/ 0.3 mL 47676 Given 07/31/2020 TB Intradermal Test 08/02/20 Read in office - neg; 0 [place] [address] Given 06/27/2020 Influenza Vaccin e Split Virus Preservative Free Im Use (hi-dose) [id number] [id number] Given 05/31/2019 Influenza,Unspecified 15747 Given 12/01/2018 Shingrix Zoster (Shingles) Vaccine (HZV) Recomb,Subnit,Adjuvanted [id number] 80350 Given 05/11/2018 Shingrix Zoster (Shingles) Vaccine (HZV) Recomb,Subnit,Adjuvanted [id number] Given 01/12/2018 Pneumococcal Immunization [id number] 16347 Given 08/26/2016 Adacel or Boostrix, TDaP [id number] 49248 Given 07/02/2016 Prevnar 13 [id number] Vital Signs Date Vital Result Comment 04/09/2021 3:11pm BP Systolic 120 mmHg BP Diastolic 80 mmHg Heart Rate 68 /min reg Respiratory Rate 12 /min not laboured Body Temperature 98.5 F forehead Height 68 inches 5'8" w/sandal Weight 140.00 lb w/sandals BMI (Body Mass Index) 21.3 kg/m2 [place] Body Weight 140 lb 03/02/2021 9:48am Body Temperature 97.2 F Results Test Acquired Date Facility Test Result H/L Range Note Lipid Panel 04/26/[address] [facility] Triglycerides Level 33 mg/dL Normal <150 Cholesterol Level 155 mg/dL Normal <200 HDL Cholesterol 75 mg/dL Normal >40 LDL Cholesterol 73 mg/dL Normal <100 Non-HDL-C 80 mg/dL Normal Cholesterol Risk Ratio 2.066 Normal <5 Basic Metabolic Profile 04/26/[address] [facility] Glucose, Fasting 89 mg/dL Normal 70-100 Blood [...] mg/dL Normal 8.8-10.2 Laboratory test finding 04/26/[address] 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 Procedures Date Code Description Status 04/09/2021 49052 Office/Outpatient Established Hi gh MDM 40-54 Min Completed 04/09/2021 35320 Electrocardiogram Complete Compl eted 04/09/202130993 Aspiration And/Or Injection Of G anglion Cyst (S) Any Location Completed 03/02/2021 36280 Office/Outpatient Established Mo d MDM 30-39 Min Completed 02/21/2021 [id number] Mammogram Completed 02/14/2021 30714 Office/Outpatient Established Lo w MDM 20-29 Min Completed 2003 [id number] Colonoscopy Completed Medical Devices Description No Information [...] mass index [BMI] 21.0-2 1.9, adult Z79.01 MCC (current) use of a nticoagulants Office Visit [...] 21.0-21.9, adult Padilla Humphries M.D. 04/09/2021 Z79.01 MCC (current) use of antic oagulants Padilla Humphries M.D. 04/05/2021 Z01.818 Encounter for other preprocedura l examination Padilla Humphries M.D. 04/05/2021 I10 Essential (primary) hypertension Padilla Humphries M.D. 04/05/2021 F33.9 Major depressive disorder, recur rent, unspecified Padilla Humphries M.D. 04/05/2021 E78.00 Pure hypercholesterolemia, unspe cified Padlila Humphries M.D. 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
--- OUTSIDE RECORDS SUMMARY | 2021-06-19 12:00 | CCD | Continuity of Care Document ---
Author Author Jenny Humphries M.D. Organization Unknown Address [address] [place] [address] [address] [place] [address] Phone [phone] Care Team Providers Care Content Editor Name Role Phone [facility] - Ob[facility]etric[facility] & Gynecology AUTM [phone] HCP given AUTM Unavailable Dave Lee MD AUTM [phone] [facility] - Emergency Veterinary Assistant AUTM [phone] Problems Active Problems Provider Date Essential hypertension [...] Padilla Humphries M.D. Calcium Soft Chews 5 [id number]-Ycd-tkg Chewtabs 2 daily Unknown History Medications Amoxicillin/Clavulanate Potassium 875-125mg Tablets 1 by mouth twice a day 20tabs L03.116 Jae Ramirez D. O. 02/14/2021 - 02/24/2021 Immunizations CPT Code Status Date Vaccine Reaction Lot # [id number] Given 10/26/2020 Sars-Cov-2 (Covi d-19) Pfizer Vac mRNA, LNP-S, PF, 30 mcg/ 0.3 mL 07307 Given 10/05/2020 Sars-Cov-2 (Covi d-19) Pfizer Vac mRNA, LNP-S, PF, 30 mcg/ 0.3 mL 37602 Given 07/31/2020 TB Intradermal Test 08/02/20 Read in office - neg; [address] [place] [address] Given 06/27/2020 Influenza Vaccin e Split Virus Preservative Free Im Use (hi-dose) [id number] U-Flu Given 05/31/2019 Influenza,Unspecified 69906 Given 12/01/2018 Shingrix Zoster (Shingles) Vaccine (HZV) Recomb,Subnit,Adjuvanted [id number] 15813 Given 05/11/2018 Shingrix Zoster (Shingles) Vaccine (HZV) Recomb,Subnit,Adjuvanted [id number] 52694 Given 01/12/2018 Pneumococcal Immunization [id number] 62158 Given 08/26/2016 Adacel or Boostrix, TDaP [id number] 40036 Given 07/02/2016 Prevnar 13 [id number] Vital Signs Date Vital Result Comment 04/09/2021 3:11pm BP Systolic 120 mmHg BP Diastolic 80 mmHg Body Temperature 98.5 F forehead Height 68 inches 5'8" w/sandal Weight 140.00 lb w/sandals BMI (Body Mass Index) 21.3 kg/m2 [place] Body Weight 140 lb 03/02/2021 9:48am Body Temperature 97.2 F Results Description No Information Available Procedures Date Code Description Status 04/09/2021 16139 Office/Outpatient Established Hi gh MDM 40-54 Min Completed 04/09/2021 41048 Electrocardiogram Complete Compl eted 04/09/202197871 Aspiration And/Or Injection Of G anglion Cyst (S) Any Location Completed 03/02/2021 22020 Office/Outpatient Established Mo d MDM 30-39 Min Completed 02/21/2021 [id number] Mammogram Completed 02/14/2021 04422 Office/Outpatient Established Lo w MDM 20-29 Min Completed 2003 [id number] Colonoscopy Completed Medical Devices Description No Information [...]
--- OUTSIDE RECORDS SUMMARY | 2021-06-19 12:01 | CCD ---
Author Author [facility] Organization [facility] Address Unknown Phone Unavailable Care Team Providers Care Block Mason Name Role Phone Claudio Hmuphries MD Unavailable Unavailable Claudio Humphries MD Unavailable Unavailable Claudio Humphries MD Unavailable Unavailable Claudio Humphries MD Unavailable Unavailable Claudio Humphries MD Unavailable Unavailable Claudio Humphries MD Unavailable Unavailable Claudio Humphries MD Unavailable Unavailable Claudio Humphries MD Unavailable Unavailable Claudio Humphries MD Unavailable Unavailable Claudio Humphries MD Unavailable Unavailable Claudio Humphries MD Unavailable Unavailable Claudio Humphries MD Unavailable Unavailable Claudio Humphries MD Unavailable Unavailable Claudio Humphries MD Unavailable Unavailable Claudio Humphries MD Unavailable Unavailable Claudio Humphries MD Unavailable Unavailable Claudio Humphries MD Unavailable Unavailable Claudio Humphries MD Unavailable Unavailable Claudio Humphries MD Unavailable Unavailable Claudio Humphries MD Unavailable Unavailable Claudio Humphries MD Unavailable Unavailable Claudio Humphries MD Unavailable Unavailable Silcoff, Claudio Causey MD Unavailable Unavailable Silcoff, Claudio Causey MD Unavailable Unavailable Silcoff, Claudio Causey MD Unavailable Unavailable Silcoff, Claudio Causey MD Unavailable Unavailable Silcoff, Claudio Causey MD Unavailable Unavailable Silcoff, Claudio Causey MD Unavailable Unavailable Silcoff, Claudio Causey MD Unavailable Unavailable Silcoff, Claudio Causey MD Unavailable Unavailable Silcoff, Claudio Causey MD Unavailable Unavailable Silcoff, Claudio Causey MD Unavailable Unavailable Silcoff, Claudio Causey MD Unavailable Unavailable Silcoff, Claudio Causey MD Unavailable Unavailable Silcoff, Claudio Causey MD Unavailable Unavailable Silcoff, Claudio Causey MD Unavailable Unavailable Silcoff, Claudio Causey MD Unavailable Unavailable Silcoff, Claudio Causey MD Unavailable Unavailable Silcoff, Claudio Causey MD Unavailable Unavailable Silcoff, Claudio Causey MD Unavailable Unavailable Silcoff, Claudio Causey MD Unavailable Unavailable Silcoff, Claudio Causey MD Unavailable Unavailable Silcoff, Claudio Causey MD Unavailable Unavailable Silcoff, Claudio Causey MD Unavailable Unavailable Silcoff, Claudio Causey MD Unavailable Unavailable Silcoff, Claudio Causey MD Unavailable Unavailable Silcoff, Claudio Causey MD Unavailable Unavailable Silcoff, Claudio Causey MD Unavailable Unavailable Silcoff, Claudio Causey MD Unavailable Unavailable Silcoff, Claudio Causey MD Unavailable Unavailable Silcoff, Claudio Causey MD Unavailable Unavailable Silcoff, Claudio Causey MD Unavailable Unavailable Silcoff, Claudio Causey MD Unavailable Unavailable Silcoff, Claudio Causey MD Unavailable Unavailable Silcoff, Claudio Causey MD Unavailable Unavailable Silcoff, Claudio Causey MD Unavailable Unavailable Silcoff, Claudio Causey MD Unavailable Unavailable Silcoff, Claudio Causey MD Unavailable Unavailable Silcoff, Claudio Causey MD Unavailable Unavailable Silcoff, Claudio Causey MD Unavailable Unavailable Silcoff, Claudio Causey MD Unavailable Unavailable Silcoff, Claudio Causey MD Unavailable Unavailable Silcoff, Claudio Causey MD Unavailable Unavailable Silcoff, Claudio Causey MD Unavailable Unavailable Silcoff, Claudio Causey MD Unavailable Unavailable Sopchak, M Jae DO Unavailable Unavailable Sopchak, M Jae DO Unavailable Unavailable Sopchak, M Jae DO Unavailable Unavailable Sopchak, M Jae DO Unavailable Unavailable Sopchak, M Jae DO Unavailable Unavailable Sopchak, M Jae DO Unavailable Unavailable Sopchak, M Jae DO Unavailable Unavailable Sopchak, M Jae DO Unavailable Unavailable Sopchak, M Jae DO Unavailable Unavailable Sopchak, M Jae DO Unavailable Unavailable Sopchak, M Jae DO Unavailable Unavailable Sopchak, M Jae DO Unavailable Unavailable Sopchak, M Jae DO Unavailable Unavailable Sopchak, M Jae DO Unavailable Unavailable Sopchak, M Jae DO Unavailable Unavailable Sopchak, M Jae DO Unavailable Unavailable Sopchak, M Jae DO Unavailable Unavailable Sopchak, M Jae DO Unavailable Unavailable Sopchak, M Jae DO Unavailable Unavailable Sopchak, M Jae DO Unavailable Unavailable Sopchak, M Jae DO Unavailable Unavailable Sopchak, M Jae DO Unavailable Unavailable Sopchak, M Jae DO Unavailable Unavailable Sopchak, M Jae DO Unavailable Unavailable Sopchak, M Jae DO Unavailable Unavailable Sopchak, M Jae DO Unavailable Unavailable Sopchak, M Jae DO Unavailable Unavailable Sopchak, M Jae DO Unavailable Unavailable Sopchak, M Jae DO Unavailable Unavailable Sopchak, M Jae DO Unavailable Unavailable Sopchak, M Jae DO Unavailable Unavailable Sopchak, M Jae DO Unavailable Unavailable Sopchak, M Jae DO Unavailable Unavailable Sopchak, M Jae DO Unavailable Unavailable Sopchak, M Jae DO Unavailable Unavailable Sopchak, M Jae DO Unavailable Unavailable Sopchak, M Jae DO Unavailable Unavailable Sopchak, M Jae DO Unavailable Unavailable Sopchak, M Jae DO Unavailable Unavailable Sopchak, M Jae DO Unavailable Unavailable Sopchak, M Jae DO Unavailable Unavailable Sopchak, M Jae DO Unavailable Unavailable Sopchak, M Jae DO Unavailable Unavailable Sopchak, M Jae DO Unavailable Unavailable Sopchak, M Jae DO Unavailable Unavailable Sopchak, M Jae DO Unavailable Unavailable Sopchak, M Jae DO Unavailable Unavailable Sopchak, M Jae DO Unavailable Unavailable Sopchak, M Jae DO Unavailable Unavailable Sopchak, M Jae DO Unavailable Unavailable Sopchak, M Jae DO Unavailable Unavailable Sopchak, M Jae DO Unavailable Unavailable Sopchak, M Jae DO Unavailable Unavailable Sopchak, M Jae DO Unavailable Unavailable Sopchak, M Jae DO Unavailable Unavailable Sopchak, M Jae DO Unavailable Unavailable Sopchak, M Jae DO Unavailable Unavailable Sopchak, M Jae DO Unavailable Unavailable Sopchak, M Jae DO Unavailable Unavailable Sopchak, M Jae DO Unavailable Unavailable Nancy, F Sly Unavailable Unavailable Nancy, F Sly Unavailable Unavailable Nancy, F Sly Unavailable Unavailable Nancy, F Sly Unavailable Unavailable Nancy, F Sly Unavailable Unavailable Nancy, F Sly Unavailable Unavailable Nancy, F Sly Unavailable Unavailable Nancy, F Sly Unavailable Unavailable Nancy, F Sly Unavailable Unavailable Nancy, F Sly Unavailable Unavailable Nancy, F Sly Unavailable Unavailable Nancy, F Sly Unavailable Unavailable Nancy, F Sly Unavailable Unavailable Nancy, F Sly Unavailable Unavailable Nancy, F Sly Unavailable Unavailable Nancy, F Sly Unavailable Unavailable Nancy, F Sly Unavailable Unavailable Nancy, F Sly Unavailable Unavailable Nancy, F Sly Unavailable Unavailable Nancy, F Sly Unavailable Unavailable Nancy, F Sly Unavailable Unavailable Nancy, F Sly Unavailable Unavailable Nancy, F Sly Unavailable Unavailable Nancy, F Sly Unavailable Unavailable Nancy, F Sly Unavailable Unavailable Nancy, F Sly Unavailable Unavailable Nancy, F Sly Unavailable Unavailable Nancy, F Sly Unavailable Unavailable Nancy, F Sly Unavailable Unavailable Nancy, F Sly Unavailable Unavailable Nancy, F Sly Unavailable Unavailable Feola, T Chelsey PA Unavailable Unavailable Feola, T Chelsey PA Unavailable Unavailable Feola, T Chelsey PA Unavailable Unavailable Feola, T Chelsey PA Unavailable Unavailable Feola, T Chelsey PA Unavailable Unavailable Feola, T Chelsey PA Unavailable Unavailable Feola, T Chelsey PA Unavailable Unavailable Feola, T Chelsey PA Unavailable Unavailable Feola, T Chelsey PA Unavailable Unavailable Feola, T Chelsey PA Unavailable Unavailable Feola, T Chelsey PA Unavailable Unavailable Feola, T Chelsey PA Unavailable Unavailable Feola, T Chelsey PA Unavailable Unavailable Feola, T Chelsey PA Unavailable Unavailable Feola, T Chelsey PA Unavailable Unavailable Feola, T Chelsey PA Unavailable Unavailable Feola, T Chelsey PA Unavailable Unavailable Feola, T Chelsey PA Unavailable Unavailable Feola, T Chelsey PA Unavailable Unavailable Feola, T Chelsey PA Unavailable Unavailable Feola, T Chelsey PA Unavailable Unavailable Feola, T Chelsey PA Unavailable Unavailable Feola, T Chelsey PA Unavailable Unavailable Feola, T Chelsey PA Unavailable Unavailable Feola, T Chelsey PA Unavailable Unavailable Feola, T Chelsey PA Unavailable Unavailable Feola, T Chelsey PA Unavailable Unavailable Feola, T Chelsey PA Unavailable Unavailable Feola, T Chelsey PA Unavailable Unavailable Feola, T Chelsey PA Unavailable Unavailable Feola, T Chelsey PA Unavailable Unavailable Feola, T Chelsey PA Unavailable Unavailable Feola, T Chelsey PA Unavailable Unavailable Feola, T Chelsey PA Unavailable Unavailable Feola, T Chelsey PA Unavailable Unavailable Feola, T Chelsey PA Unavailable Unavailable Feola, T Chelsey PA Unavailable Unavailable Feola, T Chelsey PA Unavailable Unavailable Feola, T Chelsey PA Unavailable Unavailable Feola, T Chelsey PA Unavailable Unavailable Feola, T Chelsey PA Unavailable Unavailable Silcoff W Padilla CARR Unavailable Unavailable Silcoff, W Padilla CARR Unavailable Unavailable Silcoff W Padilla CARR Unavailable Unavailable Silcoff W Padilla CARR Unavailable Unavailable Silcoff W Padilla CARR Unavailable Unavailable Silcoff W Padilla CARR Unavailable Unavailable Silcoff W Padilla CARR Unavailable Unavailable Silcoff W Padilla CARR Unavailable Unavailable SilcoffClaudio MD Unavailable Unavailable Silcoff W Padilla CARR Unavailable Unavailable Silcoff W Padilla CARR Unavailable Unavailable Silcoff W Padilla CARR Unavailable Unavailable SilcoffClaudio MD Unavailable Unavailable SilcoffClaudio MD Unavailable Unavailable SilcoffClaudio MD Unavailable Unavailable SilcoffClaudio MD Unavailable Unavailable SilcoffClaudio MD Unavailable Unavailable SilcoffClaudio MD Unavailable Unavailable Silcoff W Padilla CARR Unavailable Unavailable SilcoffClaudio MD Unavailable Unavailable SilcoffClaudio MD Unavailable Unavailable SilcoffClaudio MD Unavailable Unavailable SilcoffClaudio MD Unavailable Unavailable SilcoffClaudio MD Unavailable Unavailable SilcoffClaudio MD Unavailable Unavailable SilcoffClaudio MD Unavailable Unavailable SilcoffClaudio MD Unavailable Unavailable SilcoffClaudio MD Unavailable Unavailable SilcoClaudio hunter MD Unavailable Unavailable SilcoClaudio hunter MD Unavailable Unavailable SilcoClaudio hunter MD Unavailable Unavailable SilcoffClaudio MD Unavailable Unavailable Silcoff W Padilla CARR Unavailable Unavailable SilcoffClaudio MD Unavailable Unavailable SilcoffClaudio MD Unavailable Unavailable SilcoffClaudio MD Unavailable Unavailable SilcoffClaudio MD Unavailable Unavailable SilcoffClaudio MD Unavailable Unavailable SilcoClaudio hunter MD Unavailable Unavailable SilcoffClaudio MD Unavailable Unavailable SilcoffClaudio MD Unavailable Unavailable SilcoffClaudio MD Unavailable Unavailable SilcoffClaudio MD Unavailable Unavailable SilcoffClaudio MD Unavailable Unavailable Silcoff, Claudio Causey MD Unavailable Unavailable Silcoff, Claudio Causey MD Unavailable Unavailable Silcoff, Claudio Causey MD Unavailable Unavailable Silcoff, Claudio Causey MD Unavailable Unavailable Silcoff, W Padilla CARR Unavailable Unavailable Silcoff, Claudio Causey MD Unavailable Unavailable Silcoff, Claudio Causey MD Unavailable Unavailable Silcoff, Claudio Causey MD Unavailable Unavailable Silcoff, W Padilla CARR Unavailable Unavailable Silcoff, W Padilla CARR Unavailable Unavailable Silcoff, W Padilla CARR Unavailable Unavailable Silcoff, W Padilla CARR Unavailable Unavailable Silcoff, Claudio Causey MD Unavailable Unavailable Silcoff, W Padilla CARR Unavailable Unavailable Silcoff, Claudio Causey MD Unavailable Unavailable Silcoff, W Padilla CARR Unavailable Unavailable Silcoff, W Padilla CARR Unavailable Unavailable Silcoff, W Padilla CARR Unavailable Unavailable Silcoff, W Padilla CARR Unavailable Unavailable Silcoff, Claudio Causey MD Unavailable Unavailable Silcoff, Claudio Causey MD Unavailable Unavailable Rosa, Loc Acosta MD Unavailable Unavailable Rosa, Loc Acosta MD Unavailable Unavailable Rosa, Loc Acosta MD Unavailable Unavailable Rosa, Loc Acosta MD Unavailable Unavailable Rosa, Loc Acosta MD Unavailable Unavailable Rosa, Loc Acosta MD Unavailable Unavailable Rosa, Loc Acosta MD Unavailable Unavailable Rosa, Loc Fishmanc Unavailable Unavailable Rosa, Loc Fishmanc Unavailable Unavailable Rosa, Loc Fishmanc Unavailable Unavailable Rosa, Loc Acosta MD Unavailable Unavailable Rosa, Loc Fishmanc Unavailable Unavailable Rosa, Loc Fishmanc Unavailable Unavailable Rosa, Loc Fishmanc Unavailable Unavailable Rosa, Loc Fishmanc Unavailable Unavailable Rosa, Loc Fishmanc Unavailable Unavailable Rosa, Loc Fishmanc Unavailable Unavailable Rosa, Loc Fishmanc Unavailable Unavailable Rosa, Loc Fishmanc Unavailable Unavailable Rosa, Loc Fishmanc Unavailable Unavailable Rsoa, Loc Fishmanc Unavailable Unavailable Rosa, Loc Acosta MD Unavailable Unavailable Rosa, Loc Acosta MD Unavailable Unavailable Rosa, Loc Acosta MD Unavailable Unavailable Rosa, Loc Fishmanc Unavailable Unavailable Rosa, Loc Fishmanc Unavailable Unavailable Rosa, Loc Fishmanc Unavailable Unavailable Rosa, Loc Fishmanc Unavailable Unavailable Rosa, Loc Fishmanc Unavailable Unavailable MacQueen ([facility] COVID), DO NOT EDIT Dmirtiy CARR Unavail able Unavailable Lissette Brooks MD Unavailable Unavailable Lissette Brooks MD Unavailable Unavailable Lissette Brooks MD Unavailable Unavailable Lissette Brooks MD Unavailable Unavailable Lissette Brooks MD Unavailable Unavailable Lissette Brooks MD Unavailable Unavailable Todd H Brian CARR Unavailable Unavailable Lissette Brooks MD Unavailable Unavailable Todd H Brian CARR Unavailable Unavailable Lissette Brooks MD Unavailable Unavailable Lissette Brooks MD Unavailable Unavailable Lissette Brooks MD Unavailable Unavailable ToddLissette MD Unavailable Unavailable Todd H Brian CARR Unavailable Unavailable Lissette Brooks MD Unavailable Unavailable Todd H Brian CARR Unavailable Unavailable Lissette Brooks MD Unavailable Unavailable Lissette Brooks MD Unavailable Unavailable Lissette Brooks MD Unavailable Unavailable Lissette Brooks MD Unavailable Unavailable Lissette Brooks MD Unavailable Unavailable Lissette Brooks MD Unavailable Unavailable Lissette Brooks MD Unavailable Unavailable Lissette Brooks MD Unavailable Unavailable Lissette Brooks MD Unavailable Unavailable Lissette Brooks MD Unavailable Unavailable Lissette Brooks MD Unavailable Unavailable Lissette Brooks MD Unavailable Unavailable Lissette Brooks MD Unavailable Unavailable Lissette Brooks MD Unavailable Unavailable Lissette Brooks MD Unavailable Unavailable Lissette Brooks MD Unavailable Unavailable Lissette Brooks MD Unavailable Unavailable Lissette Brooks MD Unavailable Unavailable Lissette Brooks MD Unavailable Unavailable Lissette Brooks MD Unavailable Unavailable Lissette Brooks MD Unavailable Unavailable Lissette Brooks MD Unavailable Unavailable Lissette Brooks MD Unavailable Unavailable Lissette Brooks MD Unavailable Unavailable Lissette Brooks MD Unavailable Unavailable Lissette Brooks MD Unavailable Unavailable Lissette Brooks MD Unavailable Unavailable Todd H Brian CARR Unavailable Unavailable Lissette Brooks MD Unavailable Unavailable Lissette Brooks MD Unavailable Unavailable Lissette Brooks MD Unavailable Unavailable Lissette Brooks MD Unavailable Unavailable Lissette Brooks MD Unavailable Unavailable Lissette Brooks MD Unavailable Unavailable Lissette Brooks MD Unavailable Unavailable Lissette Brooks MD Unavailable Unavailable Lissette Brooks MD Unavailable Unavailable Todd H Brian CARR Unavailable Unavailable Todd, H Dirk MD Unavailable Unavailable Todd, H Dirk MD Unavailable Unavailable Todd, H Dirk MD Unavailable Unavailable Todd, H Dirk MD Unavailable Unavailable Otdd, H Dirk MD Unavailable Unavailable Todd, H Dirk MD Unavailable Unavailable Todd, H Dirk MD Unavailable Unavailable Todd, H Dirk MD Unavailable Unavailable Todd, H Dirk MD Unavailable Unavailable Todd, H Dirk MD Unavailable Unavailable Re-disclosure Warning The records that you are about to access may contain information from federally-assisted alcohol or drug abuse programs. If such information is present, then the following federally mandated warning applies: This information has been disclosed to you from records protected by federal confidentiality rules (42 CFR part 2). The federal rules prohibit you from making any further disclosure of this information unless further disclosure is expressly permitted by the written consent of the person to whom it pertains or as otherwise permitted by 42 CFR part 2. A general authorization for the release of medical or other information is NOT sufficient for this purpose. The Federal rules restrict any use of the information to criminally investigate or prosecute any alcohol or drug abuse patient.The records that you are about to access may contain highly sensitive health information, the redisclosure of which is protected by Article 27-F of the [facility] Public Health law. If you continue you may have access to information: Regarding HIV / AIDS; Provided by facilities licensed or operated by the [facility] Office of Mental Health; or Provided by the [facility] Office for People With Developmental Disabilities. If such information is present, then the following [facility] mandated warning applies: This information has been disclosed to you from confidential records which are protected by state law. State law prohibits you from making any further disclosure of this information without the specific written consent of the person to whom it pertains, or as otherwise permitted by law. Any unauthorized further disclosure in violation of state law may result in a fine or shelter sentence or both. A general authorization for the release of medical or other information is NOT sufficient authorization for further disc losure. Family History Family Member Name Family Member Gender Family Member Status Date o f Status Description Data Source(s) Unknown Unknown Problem [facility] ([facility] Unknown Male Problem MEDENT (CAP: Martin Chance MD) Unknown Unknown Problem [facility] ([facility]) Father Unknown Unknown Problem [facility] ([facility]) Unknown Unknown Problem [facility] ([facility]) Encounters Encounter Providers Location Date Indications Data Source(s ) Outpatient Attender: Padilla Humphries MD Main Office 06/18/2021 09:30:0 0 AM EDT [facility] ([facility]) Outpatient Attender: Chelsey ARZOLA 09:53:23 AM EDT - 06/17/2021 10:38:44 AM EDT [facility] ([facility] ) Office Visit Attender: Padilla Humphries MD Main Office 05/27/2021 09 :15:00 AM EDT [facility] ([facility] Outpatient Attender: Padilla Humphries MD Main Office 04/09/2021 02:45:0 0 PM EDT [facility] ([facility]) Outpatient Attender: Dave Lee MD [facility] 03/11/2021 02:15:00 PM EDT [facility] ([facility] Outpatient Attender: Padilla Humphries MD Main Office 03/02/2021 09:30:0 0 AM EDT [facility] ([facility] Outpatient Attender: Padilla Humphries MD 02/21/2021 11 :08:00 AM EDT Encounter for screening mammogram for malignant ne [facility] Encounter for screening mammogram for ma lignant ne Outpatient Attender: Jae Ramirez DO Main Office 02/14/2021 04:00:00 PM EDT [facility] ([facility]) Outpatient Attender: Sly Cruz [facility] Internal [facility] 01/15/2021 01:00:00 PM EDT [facility] ([facility] Outpatient Attender: Sly Cruz 01/10/2021 06: 11:00 PM EDT Complex tear of medial meniscus, current injury, r [facility] Complex tear of medial meniscus, current injury, r Outpatient Attender: Sly Cruz [facility] 11/13/2020 02:45:00 PM EDT [facility] ([facility] Outpatient Attender: Dmitriy Benavides ([facility] COVID) 05/14/2020 09:06:00 AM EDT COVID TESTING [facility] COVID TESTING Outpatient Attender: Brian Brooks MD [facility] 04/23/2020 10:45:00 AM EDT [facility] ([facility] Outpatient Attender: Padilla Humphries MDConsultant: Brian cook MD 04/19/2020 11:58:00 AM EDT Pain in right knee; Effusion, right knee [facility] Pain in right knee; Effusion, right knee Immunizations Vaccine Date Status Description Data Source(s) COVID-19 VACCINE Pfizer 10/26/2020 12:00:00 AM EST completed [facility] Vaccine Series Complete: YESThis Data wa s Submitted to [facility] Via [facility]. Sars-Cov-2 (Covid-19) Pfizer Vac mRNA, LNP-S, PF, 30 m cg/ 0.3 mL 10/25/2020 11:00:00 PM EST completed [facility] ([facility]) COVID-19 VACCINE Pfizer 10/05/2020 12:00:00 AM EST completed [facility] Vaccine Series Complete: NOThis Data was Submitted to [facility] Via [employer]. Sars-Cov-2 (Covid-19) Pfizer Vac mRNA, LNP-S, PF, 30 m cg/ 0.3 mL 10/04/2020 11:00:00 PM EST completed [facility] ([facility]) TB Skin test is not vaccine. 07/31/2020 10:57:00 AM EST completed [facility] ([facility]) Influenza Vaccine Split Virus Preservative Free Im Use (hi-dose) 06/27/2020 10:26:00 AM EDT completed [facility] ([facility]) Medications Medication Brand Name Start Date Product Form Dose Route Admi nistrative Instructions Pharmacy Instructions Status Indications Reaction Description Data Source(s) Amoxicillin 875 MG / Clavulanate 125 MG Oral Tablet Am oxicillin/Clavulanate Potassium 02/14/2021 12:00:00 AM EDT ORAL completed [facility] ([facility]) Amoxicillin 875 MG / Clavulanate 125 MG Oral Tablet 87 5-125 mg AMOXICILLIN/POTASSIUM CLAV 02/14/2021 12:00:00 AM EDT tablet 20 TAKE ONE TABLET BY MOUTH TWICE A DAY TAKE ONE TABLET BY MOUTH TWICE A DAY SOLD: 02/14/2021 [facility] 6.5 mg 01/07/2021 12:00:00 AM EDT insert 84 INSERT ONE VAGINAL INSERT VAGINALLY AT BEDTIME INSERT ONE VAGINAL INSERT VAGINALLY AT BEDTIME SOLD: 04/04/2021 [facility] 6.5 mg 01/07/2021 12:00:00 AM EDT insert 84 INSERT ONE VAGINAL INSERT VAGINALLY AT BEDTIME INSERT ONE VAGINAL INSERT VAGINALLY AT BEDTIME SOLD: 01/08/2021 [facility] Cyclobenzaprine hydrochloride 10 MG Oral Tablet CYCLOBENZAPR INE HCL 10/31/2020 12:00:00 AM EST tablet 30 TAKE ONE TABLET BY MOUTH THREE TIMES A DAY NEEDED FOR MUSCLE SPASMS TAKE ONE TABLET BY MOUTH THREE TIMES A D AY NEEDED FOR MUSCLE SPASMS SOLD: 11/02/2020 [facility] 20 mg 09/13/2020 12:00:00 AM EST tablet 90 TAKE ONE TABLET BY MOUTH EVERY DAY TO PREVENT BLOOD CLOTS TAKE ONE TABLET BY MOUTH EVERY DAY TO [place] EVENT BLOOD CLOTS SOLD: 01/07/2021 [facility] 20 mg 09/13/2020 12:00:00 AM EST tablet 90 TAKE ONE TABLET BY MOUTH EVERY DAY TO PREVENT BLOOD CLOTS TAKE ONE TABLET BY MOUTH EVERY DAY TO IL EVENT BLOOD CLOTS SOLD: 04/04/2021 [facility] 20 mg 09/13/2020 12:00:00 AM EST tablet 90 TAKE ONE TABLET BY MOUTH EVERY DAY TO PREVENT BLOOD CLOTS TAKE ONE TABLET BY MOUTH EVERY DAY TO IL EVENT BLOOD CLOTS SOLD: 09/14/2020 [facility] 10 mcg 09/12/2020 12:00:00 AM EST tablet 24 INSERT 1 TABLET VAGINALLY TWICE A WEEK,TAPER ABLE FOR ATROPHIC VAGINITIS INSERT 1 TABLET VAGINALLY TWICE A WEEK,TAPER ABLE FOR ATROPHIC VAGINITIS SOLD: 10/21/2020 [facility] 10 mcg 09/12/2020 12:00:00 AM EST tablet 24 INSERT 1 TABLET VAGINALLY TWICE A WEEK,TAPER ABLE FOR ATROPHIC VAGINITIS INSERT 1 TABLET VAGINALLY TWICE A WEEK,TAPER ABLE FOR ATROPHIC VAGINITIS SOLD: 04/04/2021 [facility] 10 mcg 09/12/2020 12:00:00 AM EST tablet 24 INSERT 1 TABLET VAGINALLY TWICE A WEEK,TAPER ABLE FOR ATROPHIC VAGINITIS INSERT 1 TABLET VAGINALLY TWICE A WEEK,TAPER ABLE FOR ATROPHIC VAGINITIS SOLD: 01/07/2021 [facility] atorvastatin 20 MG Oral Tablet ATORVASTATIN CALCIUM 07/14/2020 1 2:00:00 AM EST tablet 90 TAKE ONE TABLET BY M OUTH EVERY DAY TO REDUCE CHOLESTEROL AND LOWER RISK OF HEART DISEASE TAKE ONE TABLET BY MOUTH EVERY DAY TO RE DUCE CHOLESTEROL AND LOWER RISK OF HEART DISEASE SOLD: 10/23/2020 [facility] atorvastatin 20 MG Oral Tablet ATORVASTATIN CALCIUM 07/14/2020 1 2:00:00 AM EST tablet 90 TAKE ONE TABLET BY M OUTH EVERY DAY TO REDUCE CHOLESTEROL AND LOWER RISK OF HEART DISEASE TAKE ONE TABLET BY MOUTH EVERY DAY TO RE DUCE CHOLESTEROL AND LOWER RISK OF HEART DISEASE SOLD: 07/24/2020 [facility] atorvastatin 20 MG Oral Tablet ATORVASTATIN CALCIUM 07/14/2020 1 2:00:00 AM EST tablet 90 TAKE ONE TABLET BY M OUTH EVERY DAY TO REDUCE CHOLESTEROL AND LOWER RISK OF HEART DISEASE TAKE ONE TABLET BY MOUTH EVERY DAY TO RE DUCE CHOLESTEROL AND LOWER RISK OF HEART DISEASE SOLD: 01/22/2021 [facility] 20 mg 07/08/2020 12:00:00 AM EST tablet 90 TAKE ONE TABLET BY MOUTH EVERY MORNING FOR HIGH BLOOD PRESSURE TAKE ONE TABLET BY MOUTH EVERY MORNING F OR HIGH BLOOD PRESSURE SOLD: 07/12/2020 [facility] 20 mg 07/08/2020 12:00:00 AM EST tablet 90 TAKE ONE TABLET BY MOUTH EVERY MORNING FOR HIGH BLOOD PRESSURE TAKE ONE TABLET BY MOUTH EVERY MORNING F OR HIGH BLOOD PRESSURE SOLD: 10/23/2020 [facility] Citalopram 20 MG Oral Tablet CITALOPRAM HYDROBROMIDE 07/08/2020 12:00:00 AM EST tablet 45 TAKE 1/2 TABLET BY MOUTH ONCE DA BONNIE FOR MOOD TAKE 1/2 TABLET BY MOUTH ONCE DAILY FOR MOOD SOLD: 01/22/2021 [facility] Citalopram 20 MG Oral Tablet CITALOPRAM HYDROBROMIDE 07/08/2020 12:00:00 AM EST tablet 45 TAKE 1/2 TABLET BY MOUTH ONCE DA BONNIE FOR MOOD TAKE 1/2 TABLET BY MOUTH ONCE DAILY FOR MOOD SOLD: 10/23/2020 [facility] Citalopram 20 MG Oral Tablet CITALOPRAM HYDROBROMIDE 07/08/2020 12:00:00 AM EST tablet 45 TAKE 1/2 TABLET BY MOUTH ONCE DA BONNIE FOR MOOD TAKE 1/2 TABLET BY MOUTH ONCE DAILY FOR MOOD SOLD: 07/12/2020 [facility] Lisinopril 20 MG Oral Tablet LISINOPRIL 07/08/2020 12:00:00 AM EST tab let 90 TAKE ONE TABLET BY MOUTH EVERY MORNING FOR HIGH BLOOD PRESSURE TAKE ONE TABLET BY MOUTH EVERY MORNING FOR HIGH BLOOD PRESSURE SOLD: 01/22/2021 [facility] Cyclobenzaprine hydrochloride 10 MG Oral Tablet CYCLOBENZAPR INE HCL 06/15/2020 12:00:00 AM EDT tablet 30 TAKE ONE TABLET BY MOUTH THREE TIMES A DAY NEEDED FOR MUSCLE SPASMS TAKE ONE TABLET BY MOUTH THREE TIMES A D AY NEEDED FOR MUSCLE SPASMS SOLD: 06/15/2020 [facility] ibandronic acid 150 MG Oral Tablet Ibandronate Sodium 03/21 12:00:00 AM EDT ORAL completed [facility] ([facility]) 20 mg 01/17/2020 12:00:00 AM EDT tablet 45 TAKE 1/2 TABLET BY MOUTH ONCE DAILY FOR MOOD TAKE 1/2 TABLET BY MOUTH ONCE DAILY FOR MOOD SOLD: 05/01/2020 [facility] risedronate sodium 150 MG Oral Tablet RISEDRONATE SODIUM 12:00:00 AM EDT tablet 3 TAKE 1 TABLET BY MOUTH MONTHY ON EMPTY STOMACH WITH TALL GLASS OF WATER,DO NOT EAT OR LIE DOWN FOR 30 MINUTES AFTERWARDS TAKE 1 TABLET BY MOUTH MONTHY ON EMPTY STOMACH WITH TALL GLASS OF WATER,DO NOT EAT OR LIE DOWN FOR 30 MINUTES AFTERWARDS SOLD: 09/14/2020 [facility] risedronate sodium 150 MG Oral Tablet RISEDRONATE SODIUM 12:00:00 AM EDT tablet 3 TAKE 1 TABLET BY MOUTH MONTHY ON EMPTY STOMACH WITH TALL GLASS OF WATER,DO NOT EAT OR LIE DOWN FOR 30 MINUTES AFTERWARDS TAKE 1 TABLET BY MOUTH MONTHY ON EMPTY STOMACH WITH TALL GLASS OF WATER,DO NOT EAT OR LIE DOWN FOR 30 MINUTES AFTERWARDS SOLD: 06/22/2020 [facility] 20 mg 10/10/2019 12:00:00 AM EST tablet 90 TAKE ONE TABLET BY MOUTH EVERY DAY TO PREVENT BLOOD CLOTS TAKE ONE TABLET BY MOUTH EVERY DAY TO IL EVENT BLOOD CLOTS SOLD: 07/12/2020 [facility] 20 mg 08/23/2019 12:00:00 AM EST tablet 90 TAKE ONE TABLET BY MOUTH EVERY MORNING FOR HIGH BLOOD PRESSURE TAKE ONE TABLET BY MOUTH EVERY MORNING F OR HIGH BLOOD PRESSURE SOLD: 05/01/2020 [facility] 10 mcg 07/27/2019 12:00:00 AM EST tablet 24 INSERT 1 TABLET VAGINALLY TWICE A WEEK, TAPER ABLE, FOR ATROPHIC VAGINITIS INSERT 1 TABLET VAGINALLY TWICE A WEEK, TAPER ABLE, FOR ATROPHIC VAGINITIS SOLD: 06/19/2020 [facility] atorvastatin 20 MG Oral Tablet ATORVASTATIN CALCIUM 06/03/2019 1 2:00:00 AM EDT tablet 64 TAKE ONE TABLET BY M OUTH EVERY DAY TO REDUCE CHOLESTEROL AND LOWER RISK OF HEART DISEASE TAKE ONE TABLET BY MOUTH EVERY DAY TO RE DUCE CHOLESTEROL AND LOWER RISK OF HEART DISEASE SOLD: 05/01/2020 [facility] Insurance Providers Payer name Policy type / Coverage type Policy ID Covered alliance party ID Covered alliance party's relationship to miller Policy Miller Plan Information BLUE CROSS [id number] BLUE CROSS [id number] BLUE CROSS [id number] BLUE CROSS [id number] BLUE CROSS [id number] BLUE CROSS [id number] BLUE CROSS [id number] BLUE CROSS [id number] BLUE CROSS [id number] BLUE CROSS [id number] BLUE CROSS [id number] BLUE CROSS [id number] MEDICARE [id number] SELF [id number] MEDICARE [id number] SELF [id number] BLUE CROSS [id number] [facility] Medicare Primary [id number] [facility] Medicare Primary [id number] [facility] Medicare Primary [id number] BLUE CROSS [id number] BLUE CROSS [id number] MEDICARE [id number] SELF [id number] MEDICARE [id number] SELF [id number] R36 BLUE CROSS [id number] SELF PAY BLUE CROSS [id number] MEDICARE [id number] SELF [id number] SELF PAY COVID19 ONLY SELF SELF PAY BLUE CROSS [id number] MEDICARE [id number] SELF [id number] COVID19 ONLY SELF BLUE CROSS [id number] MEDICARE [id number] SELF [id number] R36 SELF PAY MEDICARE [id number] SELF [id number] R36 BLUE CROSS [id number] S[place]F [place] Part B [id number] Self [id number] MEDICARE [id number] SP [id number] R36 [place] [id number] HU2 [id number] BCBS [place] PPO [id number] HU2 [id number] MEDICARE [id number] SP [id number] A COVID19 ONLY SELF Excellus Ind/Ppo/Hmo/Pos Medigap Part B [id number] Excellus Ind/Ppo/Hmo/Pos Medigap Part B [id number] Excellus Ind/Ppo/Hmo/Pos Medigap Part B [id number] BC/BS CNY Pos Health Maintenance Organization (HMO) [id number] Family Dependent [id number] [place] Primary [id number] Self [id number] BS Facets Medigap Part B [id number] Family Dependent [id number] Medicare Medicare Primary [id number] Self [id number] Excellus Ind/Ppo/Hmo/Pos Medigap Part B [id number] [facility] Medicare Primary [id number] Excellus Ind/Ppo/Hmo/Pos Medigap Part B [id number] National Govt Services Medicare Primary [id number] EXCELLUS BCBS B [id number] S [id number] MEDICARE C [id number] S [id number] A Excellus Ind/Ppo/Hmo/Pos Medigap Part B [id number] [place] [employer] Medicare Primary [id number] BCBS/Excellus Medigap Part B [id number] Family Dependent [id number] Medicare Natl Gov't Servi Medicare Primary [id number] Self [id number] Excellus Ind/Ppo/Hmo/Pos Medigap Part B [id number] National Govt Services Medicare Primary [id number] Excellus Ind/Ppo/Hmo/Pos Medigap Part B [id number] [place] [employer] Medicare Primary [id number] Excellus Ind/Ppo/Hmo/Pos Medigap Part B [id number] [facility] Medicare Primary [id number] BS Facets Medigap Part B [id number] Family Dependent Medicare Medicare Primary [id number] Self Excellus Ind/Ppo/Hmo/Pos Medigap Part B [id number] Medicare Medicare Primary [id number] Excellus Ind/Ppo/Hmo/Pos Medigap Part B [id number] Medicare Medicare Primary [id number] BLUE CROSS [id number] BCBS [place] PPO 302/307 [id number] Problems, Conditions, and Diagnoses Code Display Name Description Problem Type Effective Dates Data Source(s) Z12.31 Encounter for screening mammogram for ma lignant neoplasm of breast Z12.31 - Encounter for screening mammogram for malignant neoplasm of breast Diagnosis 02/21/2021 11:08:00 AM [facility] S83.231D Complex tear of medial menis cus, current injury, right knee, subsequent encounter S83.231D - Complex tear of medial menisc us, current injury, right knee, subsequent encounter Diagnosis 01/10/2021 06:11:00 PM [facility] M25.461 Effusion, right knee M25.461 - Effusion, right knee Di agnosis 04/19/2020 11:58:00 AM [facility] M25.561 Pain in right knee M25.561 - Pain in right knee Diagno sis 04/19/2020 11:58:00 AM EDT [facility] S83.231D Tear of medial meniscus of knee Tear of medial m eniscus of knee Problem 01/15/2021 12:00:00 AM EDT [facility] S83.231A Current tear of medial cartilage AND/OR meniscus of knee Current tear of medial cartilage AND/OR meniscus of knee Problem 11/13/2020 12:00 :00 AM EDT [facility] ([facility] Surgeries/Procedures Procedure Description Date Indications Data Source(s) OFFICE OUTPATIENT VISIT 15 MINUTES 06/18/2021 12:00:00 AM EDT [facility] ([facility]) PHYSICIAN TELEPHONE EVALUATION 21-30 MIN 05/27/2021 12 :00:00 AM EDT [facility] ([facility]) Aspiration And/Or Injection Of Ganglion Cyst (S) Any Locatio n 04/09/2021 12:00:00 AM EDT [facility] ([facility]) Electrocardiogram Complete 04/09/2021 12:00:00 AM EDT [facility] ([facility]) OFFICE OUTPATIENT VISIT 40 MINUTES 04/09/2021 12:00:00 AM EDT [facility] ([facility]) OFFICE OUTPATIENT VISIT 25 MINUTES 03/11/2021 12:00:00 AM EDT [facility] ([facility] OFFICE OUTPATIENT VISIT 25 MINUTES 03/02/2021 12:00:00 AM EDT [facility] ([facility]) Mammogram 02/21/2021 12:00:00 AM EDT M [facility] ([facility]) 2018: benign OFFICE OUTPATIENT VISIT 15 MINUTES 02/14/2021 12:00:00 AM EDT [facility] ([facility]) OFFICE OUTPATIENT VISIT 25 MINUTES 01/15/2021 12:00:00 AM EDT [facility] ([facility] OFFICE OUTPATIENT VISIT 15 MINUTES 11/13/2020 12:00:00 AM EDT [facility] ([facility] Results ID Date Data Source [id number] 04/26/2021 01:31:00 PM [facility]T [facility]) Name Value Range Interpretation Code Description Data Ramonita rce(s) Supporting Document(s) Alanine aminotransferase [Enzymatic activity/volume] in Seru m or Plasma 34 U/L 12-78 Normal (applies to non-numeric results) [facility] ([facility]) ID Date Data Source [id number] 04/26/2021 01:31:00 PM EDT [facility] ([facility]) Name Value Range Interpretation Code Description Data Ramonita rce(s) Supporting Document(s) Laboratory test finding (navigational concept) 0.63 mg/dL 0 .55-1.30 Normal (applies to non-numeric results) [facility] ([facility]) Laboratory test finding (navigational concept) 11 mg/dL 7 -18 Normal (applies to non-numeric results) [facility] ([facility]) Laboratory test finding (navigational concept) 89 mg/dL 7 0-100 Normal (applies to non-numeric results) [facility] ([facility] ) Laboratory test finding (navigational concept) 137 meq/L 1 36-145 Normal (applies to non-numeric results) [facility] ) Laboratory test finding (navigational concept) Laboratory test r esult Normal (applies to non-numeric results) [facility] ([facility]) <content>Units are mL/min/1.73 m2</content>
<content></content>
<content>Chronic Kidney Disease Staging per NKF:</content>
<content></content>
<content>Stage I & II GFR >=60 Normal to Mildly Decreased</content>
<content>Stage III GFR 30-59 Moderately Decreased</content>
<content>Stage IV GFR 15-29 Severely Decreased</content>
<content>Stage V GFR <15 Very Little GFR Left</content>
<content>ESRD GFR <15 on ICD 9 CODER</content>
<content></content> Laboratory test finding (navigational concept) 103 meq/L 9 8-107 Normal (applies to non-numeric results) [facility] ([facility] ) Laboratory test finding (navigational concept) 4.6 meq/L 3 .5-5.1 Normal (applies to non-numeric results) [facility] ([facility], [facility] ) Anion Gap 4 meq/L 8-16 Below low normal [facility] ([facility]) Laboratory test finding (navigational concept) 30 meq/L 2 1-32 Normal (applies to non-numeric results) [facility] ([facility]) Laboratory test finding (navigational concept) 9.2 mg/dL 8 .8-10.2 Normal (applies to non-numeric results) [facility] ([facility]) ID Date Data Source [id number] 04/26/2021 01:31:00 PM EDT [facility] ([facility]) Name Value Range Interpretation Code Description Data Ramonita rce(s) Supporting Document(s) Laboratory test finding (navigational concept) 33 mg/dL Normal (applies to non-numeric results) [facility] ([facility]) LDL Cholesterol 73 mg/dL Normal (applies to non-numeric results) [facility] ([facility]) Laboratory test finding (navigational concept) 155 mg/dL Normal (applies to non-numeric results) [facility] ([facility]) HDL Cholesterol 75 mg/dL Normal (applies to non-numeric results) [facility] ([facility]) Laboratory test finding (navigational concept) 2.066 Normal (applies to non- numeric results) [facility] ([facility]) Laboratory test finding (navigational concept) 80 mg/dL Normal (applies to non-numeric results) [facility] ([facility]) ID Date Data Source [id number] 04/24/2021 04:46:00 PM EDT [facility] ([facility]) Name Value Range Interpretation Code Description Data Ramonita rce(s) Supporting Document(s) Occult Blood, F I T Laboratory test result [facility] ([facility]) ID Date Data Source [id number] 04/22/2021 12:00:00 AM EDT [facility] Name Value Range Interpretation Code Description Data Ramonita rce(s) Supporting Document(s) SARS coronavirus 2 RNA Not Detected [facility] This lab was ordered by [facility] and rep orted by [facility]. ID Date Data Source [id number] 02/21/2021 11:33:00 AM EDT [facility] Patient Name: JENNY BURNETT Ordering Physician: Padilla Humphries MD : 1950 Age: 70 Sex: F Location: [facility] Exam Date: 02/21/21 ADM Status: REG REF Observation Date/Time: Order Information: MG SCREEN MAMMO/BLAS BILAT Accession Number: [id number] CPT: 16916 CLINICAL HISTORY: Screening COMPARISON: February 23, 2019, February 19, 2018, February 22, 2016, May 27, 2012 DATE OF LAST CLINICAL EXAM: 1 year ago TECHNIQUE: Bilateral breast tomosynthesis was performed with synthetic planar views in the CC and MLO projections. A computer-aided detection system (CAD) was also used for evaluation. Breast density was evaluated using an automated volumetric breast density determination algorithm. FINDINGS: BREAST COMPOSITION: The breasts are extremely dense, which lowers the sensitivity of mammography. MASSES: There are no suspicious nodules or masses. CALCIFICATIONS: There are typically benign calcifications. ASYMMETRY: There are stable scattered asymmetries. ARCHITECTURAL DISTORTION: There is no architectural distortion. SKIN: There is no skin thickening. LYMPH NODES: There is no lymphadenopathy. SPECIAL CASES: None OTHER FINDINGS: There has been no significant change from previous examinations. ASSESSMENT: NO SPECIFIC MAMMOGRAPHIC EVIDENCE OF MALIGNANCY. RECOMMENDA TION: RECOMMEND ROUTINE YEARLY SCREENING MAMMOGRAPHY. ACR BIRADS Category 2: Benign CPT II Codes: 7025F <Electronically signed by Javier Ospina MD in OV> 02/21/21 1134 Dictated By: Javier Ospina MD Dictated Date/Time: 02/21/21 1133 Transcribed Date/Time: 02/21/21 1133 Copy to: CC: Javier Ospina MD; Padilla Humphries MD Imaging - [facility] - [facility] [id number] [place] [id number] [place] [phone] ph ph ph Name Value Range Interpretation Code Description Data Ramonita rce(s) Supporting Document(s) ID Date Data Source [id number] 01/11/2021 08:09:00 AM EDT [facility] Patient Name: Jenny Burnett [id number] Ordering Physician: Sly Cruz MD Account Numb er: [id number] : 1950 Age: 70 Sex: F Location: [facility] Exam Date: 01/10/21 ADM Status: REG REF Observation Date/Time: Order Information: MRI KNEE RIGHT W/O Accession Number: [id number] CPT: 65009 Indication: Right knee pain. Image Sequences: Sagittal proton density, fat-suppressed proton density, coronal T1, proton density, STIR, and axial fat-suppressed proton density images of the knee were obtained. Comparison is made with previous exam dated April 19, 2020. Again noted is a longitudinal tear of the posterior horn of the medial meniscus. There is a horizontal and longitudinal component. In addition, there is suggestion of increased signal at the root of the posterior horn which may represent a root tear. The lateral meniscus is normal in morphology. No abnormal signal is present to suggest a tear. The anterior and posterior cruciate ligaments appear intact. Quadriceps and infrapatellar tendon are intact. Patellofemoral joint is grossly unremarkable. The medial and lateral retinaculum are unremarkable. IMPRESSION: 1. There is a longitudinal tear of the posterior horn with a horizontal component which appears to be chronic. There may be a progressive root tear of the posterior horn of the medial meniscus. 2. The lateral meniscus is intact. Small to moderate joint effusion. 3. Patellofemoral joint arthritis is noted. <Electronically signed by Eleni Olivera MD in OV> 01/11/21 1634 Dictated By: Eleni Olivera MD Dictated Date/Time: 01/11/21808 Transcribed Date/Time: 01/11/21808 Copy to: CC:Sly Cruz MD; Padilla Humphries MD; Eleni Olivera MD Imaging - [facility] [address] [address] ph ph ph Name Value Range Interpretation Code Description Data Ramonita rce(s) Supporting Document(s) ID Date Data Source [id number] 08/16/2020 12:00:00 AM EST [facility] Name Value Range Interpretation Code Description Data Ramonita rce(s) Supporting Document(s) SARS coronavirus 2 RNA [Presence] in Res piratory specimen by LYDIA with probe detection [facility] This lab was ordered by [facility] and [facility] ID Date Data Source [id number] 05/14/2020 09:06:00 AM EDT [facility] ([facility]) Name Value Range Interpretation Code Description Data Ramonita rce(s) Supporting Document(s) Laboratory test finding (navigational concept) Laboratory test result [facility] ([facility] Sars Coronavirus-2, PCR Laboratory test result [facility] ([facility] Negative results do not preclude SARS-Co V-2 infection and should not be used as the sole basis for patient management decisions. Per FDA guidelines, this test has been internally validated at [facility] Laboratory utilizing known standards and patient samples. Validation review by the FDA is pending. ID Date Data Source [id number] 05/14/2020 09:06:00 AM EDT [facility] Name Value Range Interpretation Code Description Data Ramonita rce(s) Supporting Document(s) SARS-CoV-2 (COVID-19) RNA [Presence] in Respiratory specimen by LYDIA with probe detection [facility] This lab was ordered by [facility] and reported by [facility]. ID Date Data Source [id number] 05/14/2020 11:07:00 PM EDT [facility] [id number] Name Value Range Interpretation Code Description Data Ramonita rce(s) Supporting Document(s) SARS Coronavirus-2, PCR Undetected Undetected [facility] Negative results do not preclude SARS-Co V-2 infection andshould not be used as the sole basis for patient managementdecisions.Per FDA guidelines, this test has been internally validatedat [facility] Laboratory utilizing known standards and patientsamples. Validation review by the FDA is pending. SARS Coronavirus-2, Source Nasopharyngeal [facility] ID Date Data Source [id number] 04/19/2020 05:25:00 PM EDT [facility] Patient Name: JENNY BURNETT Ordering Physician: Padilla Humphries MD : 1950 Age: 70 Sex: F Location: [facility] Exam Date: 04/19/201199 ADM Status: REG REF Observation Date/Time: Order Information: MRI KNEE RIGHT W/O Accession Number: [id number] CPT: 78568 Indication: RIGHT knee pain following twisting injury on April 16, 2020. Unable to bear weight. COMPARISON: April 18, 2020 radiographs. Technique: LynxFit for Google Glass 3.0 Jaky [id number]. Noncontrast MRI RIGHT knee. Report: ARTICULAR ALIGNMENT: Normal. SYNOVIAL SPACES: Moderate joint effusion. Negative for fluid within the semimembranosus medial gastrocnemius bursa. BONES: Negative for osseous contusion, fracture, osteochondral lesion, avascular necrosis, or suspicious osseous lesions. ARTICULAR CARTILAGE: Partial-thickness degeneration of the hyaline articular cartilage most prominent at the medial femoral condyle. MENISCI: #. Medial meniscus: Complex degenerative horizontal tear at the junction of the posterior horn and body of the medial meniscus. The tear extends to the tibial articular surface and free edge without significant displacement. #. Lateral meniscus: Normal morphology intact lateral meniscus. LIGAMENTS: #. Anterior cruciate: Normal. #. Posterior cruciate: Normal. #. Medial collateral: Normal. #. Lateral collateral ligament complex: The IT band, lateral collateral ligament, popliteus tendon, and biceps femoris tendon appear intact. #. Quadriceps tendon: Normal. #. Patellar tendon: Normal. MUSCLES: Normal morphology and patterns of signal intensity without abnormality. POPLITEAL FOSSA: Soft tissue edema at the popliteal fossa. SUBCUTANEOUS TISSUES: Subcutaneous tissue plane edema most prominent anteriorly. IMPRESSION: #. 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 #. Complex degenerative tear at the junction of the posterior horn and body of the medial meniscus without significant displacement. #. Moderate joint effusion. <Electronically signed by Jamison Chambers MD in [place]> 04/19/201733 Dictated By: Jamison Chambers MD Dictated Date/Time: 04/19/201724 Transcribed Date/Time: 04/19/201724 Copy to: CC:Brian Brooks MD; Padilla Humphries MD; Jamison Chambers MD Imaging - [facility] Imaging [facility] [address] [address] ph [phone] ph [phone] ph ) Name Value Range Interpretation Code Description Data Ramonita rce(s) Supporting Document(s) Procedure Social History Code Duration Value Status Description Data Source(s ) Smoking 03/11/2021 12:00:00 AM EDT Patient is a former smoker completed Patient is a former smoker [facility] ([facility] Vital Signs ID Date Data Source UNK Name Value Range Interpretation Code Description Data Source(s) Body height 68 [in_i] 68 [in_i] MEDSHEYLA ([facility]) 5'8" w/sandal Systolic blood pressure 120 mm[Hg] 120 mm[Hg] M EDENT ([facility] Body weight 140.00 [lb_av] 140.00 [lb_av] CHAYITO T ([facility] w/sandals Body mass index (BMI) [Ratio] 21.3 kg/m2 21.3 k g/m2 MEDENT ([facility]) [place] body weight 140 [lb_av] 140 [lb_av] MEDEN T ([facility], [facility]) Diastolic blood pressure 80 mm[Hg] 80 mm[Hg] MEDENT ([facility]) Body temperature 98.5 [degF] 98.5 [degF] MEDENT ([facility]) forehead Heart rate 68 /min 68 /min MEDENT ([facility]) reg Respiratory rate 12 /min 12 /min MEDENT ( [facility]) not laboured Heart rate 83 /min 83 /min MEDENT ([facility] Body height 67.5 [in_i] 67.5 [in_i] MEDENT ([facility] 5'7.50" Body weight 142.00 [lb_av] 142.00 [lb_av] MEDEN T ([facility] Systolic blood pressure 128 mm[Hg] 128 mm[Hg] M EDENT ([facility] Diastolic blood pressure 84 mm[Hg] 84 mm[Hg] MEDENT ([facility] Body temperature 97.7 [degF] 97.7 [degF] MEDENT ([facility] Respiratory rate 18 /min 18 /min MEDENT ( [facility] Body mass index (BMI) [Ratio] 21.9 kg/m2 21.9 k g/m2 MEDENT ([facility] Body temperature 97.2 [degF] 97.2 [degF] MEDENT ([facility]) Systolic blood pressure 124 mm[Hg] 124 mm[Hg] M EDENT ([facility]) ~ 1 week ago Diastolic blood pressure 72 mm[Hg] 72 mm[Hg] MEDENT ([facility]) ~ 1 week ago Body weight 142.00 [lb_av] 142.00 [lb_av] MEDEN T ([facility]) Heart rate 65 /min 65 /min MEDENT ([facility] Body weight 143.00 [lb_av] 143.00 [lb_av] MEDEN T ([facility] Diastolic blood pressure 62 mm[Hg] 62 mm[Hg] MEDENT ([facility] Systolic blood pressure 120 mm[Hg] 120 mm[Hg] M EDENT ([facility] Body mass index (BMI) [Ratio] 22.1 kg/m2 22.1 k g/m2 MEDENT ([facility] Body temperature 98.0 [degF] 98.0 [degF] MEDENT ([facility] Body height 67.5 [in_i] 67.5 [in_i] MEDENT ([facility] 5'7.50" Body height 68 [in_i] 68 [in_i] MEDENT ([facility] 5'8" Body weight 144.00 [lb_av] 144.00 [lb_av] MEDEN T ([facility] Heart rate 84 /min 84 /min MEDENT ([facility] Systolic blood pressure 122 mm[Hg] 122 mm[Hg] EDENT ([facility] Diastolic blood pressure 74 mm[Hg] 74 mm[Hg] MEDENT ([facility] Respiratory rate 12 /min 12 /min MEDENT ( [facility] Body temperature 96.2 [degF] 96.2 [degF] MEDENT ([facility] Body mass index (BMI) [Ratio] 21.9 kg/m2 21.9 k g/m2 MEDENT ([facility] Body weight 139.00 [lb_av] 139.00 [lb_av] MEDEN T ([facility] Body height 67 [in_i] 67 [in_i] MEDENT ([facility] 5'7" Heart rate 66 /min 66 /min MEDENT ([facility] Systolic blood pressure 130 mm[Hg] 130 mm[Hg] M EDENT ([facility] Diastolic blood pressure 88 mm[Hg] 88 mm[Hg] MEDENT ([facility] Respiratory rate 18 /min 18 /min MEDENT ( [facility] Body temperature 97.5 [degF] 97.5 [degF] MEDENT ([facility] Body mass index (BMI) [Ratio] 21.8 kg/m2 21.8 k g/m2 MEDENT ([facility] ID Date Data Source [id number] 04/19/2020 05:38:00 PM EDT [facility] Name Value Range Interpretation Code Description Data Source(s) WEIGHT RECORDED 62.144779 kg 62.825621 kg [facility] WEIGHT RECORDED 62.885507 kg 62.261776 kg [facility]
--- OUTSIDE RECORDS SUMMARY | 2021-06-19 14:58 | CCD ---
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 Name Role Phone Claudio Humphries MD Unavailable Unavailable Claudio Humphries [...] Silcoff, Claudio Causey MD Unavailable Unavailable Silcoff, Caludio Causey MD Unavailable Unavailable Silcoff, Claudio Causey [...] Nancy, F Sly Unavailable Unavailable Nancy, F Lsy Unavailable Unavailable Nancy, F Sly Unavailable Unavailable [...] Rosa, Loc Fishmanc Unavailable Unavailable Rosa, Loc Fihsmanc Unavailable Unavailable MacQueen ([facility] COVID), DO NOT EDIT Dmitriy CARR Unavail able Unavailable Lissette Brooks MD [...] is protected by Article 27-F of the [facility] Public Health law. If you continue you may have access to information: Regarding HIV / AIDS; Provided by facilities licensed or operated by the [facility] Office of Mental Health; or Provided by the [facility] Office for People With Developmental Disabilities. If such information is present, then the following [facility] mandated warning applies: This information has been [...] law may result in a fine or mcc sentence or both. A general authorization for the release of medical or other information is NOT sufficient authorization for further disc losure. Family History Family Member Name Family Member Gender Family Member Status Date o f Status Description Data Source(s) Unknown Unknown Problem [facility] ([facility] Unknown Male Problem [facility] (CAP: Martin Chance MD) Unknown Unknown Problem [facility] ([facility] Father Unknown Unknown Problem [facility] ([facility]) Unknown Unknown Problem [facility] ([facility]) Encounters Encounter Providers Location Date Indications Data Source(s ) Outpatient Attender: Padilla Humphries MD Main Office 06/18/2021 09:30:0 0 AM EDT [facility] ([facility]) Outpatient Attender: Chelsey ARZOLA 09:53:23 AM EDT - 06/17/2021 10:38:44 AM EDT [facility] ([facility] ) Office Visit Attender: Padilla Humphries MD Main Office 05/27/2021 09 :15:00 AM EDT [facility] ([facility]) Outpatient Attender: Padilla Humphries MD Main Office 04/09/2021 02:45:0 0 PM EDT [facility] ([facility]) Outpatient Attender: Dave Lee MD [facility] 03/11/2021 02:15:00 PM EDT [facility] ([facility] Outpatient Attender: Padilla Humphries MD Main Office 03/02/2021 09:30:0 0 AM EDT [facility] ([facility]) Outpatient Attender: Padilla Humphries MD 02/21/2021 11 :08:00 AM EDT Encounter for screening mammogram for malignant ne [facility] Encounter for screening mammogram for ma lignant ne Outpatient Attender: Jae Ramirez DO Main Office 02/14/2021 04:00:00 PM EDT [facility] ([facility]) Outpatient Attender: Sly Cruz [facility] 01/15/2021 01:00:00 PM EDT [facility] ([facility] Outpatient Attender: Sly Cruz 01/10/2021 06: 11:00 PM EDT Complex tear of medial meniscus, current injury, r [facility] Complex tear of medial meniscus, current injury, r Outpatient Attender: Sly Cruz [facility] 11/13/2020 02:45:00 PM EDT [facility] ([facility] Outpatient Attender: Dmitriy Benavides ([facility] COVID) 05/14/2020 09:06:00 AM EDT COVID TESTING [facility] COVID TESTING Outpatient Attender: Brian Brooks MD [facility] 04/23/2020 10:45:00 AM EDT [facility] ([facility] Outpatient Attender: Padilla Humphries MDConsultant: Brian cook MD 04/19/2020 11:58:00 AM EDT Pain in right knee; Effusion, right knee [facility] Pain in right knee; Effusion, right knee Immunizations Vaccine Date Status Description Data Source(s) COVID-19 VACCINE Pfizer 10/26/2020 12:00:00 AM EST completed [facility] Vaccine Series Complete: YESThis Data wa s Submitted to [facility] Via [facility]. Sars-Cov-2 (Covid-19) Pfizer Vac mRNA, LNP-S, PF, 30 m cg/ 0.3 mL 10/25/2020 11:00:00 PM EST completed [facility] ([facility]) COVID-19 VACCINE Pfizer 10/05/2020 12:00:00 AM EST completed [facility] Vaccine Series Complete: NOThis Data was Submitted to [facility] Via [facility]. Sars-Cov-2 (Covid-19) Pfizer Vac mRNA, LNP-S, PF, 30 m cg/ 0.3 mL 10/04/2020 11:00:00 PM EST completed [facility] ([facility]) TB Skin test is not vaccine. 07/31/2020 10:57:00 AM EST completed [facility] ([facility]) Influenza Vaccine Split Virus Preservative Free Im Use (hi-dose) 06/27/2020 10:26:00 AM EDT completed [facility] ([facility]) Medications Medication Brand Name Start Date Product Form Dose Route Admi nistrative Instructions Pharmacy Instructions Status Indications Reaction Description Data Source(s) Amoxicillin 875 MG / Clavulanate 125 MG Oral Tablet Am oxicillin/Clavulanate Potassium 02/14/2021 12:00:00 AM EDT ORAL completed [facility] ([facility]) Amoxicillin 875 MG / Clavulanate 125 MG [...] ONE TABLET BY MOUTH EVERY DAY TO ND EVENT BLOOD CLOTS SOLD: 01/07/2021 [facility] 20 mg 09/13/2020 12:00:00 AM EST tablet 90 TAKE ONE TABLET BY MOUTH EVERY DAY TO PREVENT BLOOD CLOTS TAKE ONE TABLET BY MOUTH EVERY DAY TO ND EVENT BLOOD CLOTS SOLD: 04/04/2021 [facility] 20 mg 09/13/2020 12:00:00 AM EST tablet 90 TAKE ONE TABLET BY MOUTH EVERY DAY TO PREVENT BLOOD CLOTS TAKE ONE TABLET BY MOUTH EVERY DAY TO ND EVENT BLOOD CLOTS SOLD: 09/14/2020 [facility] [...] TAKE 1/2 TABLET BY MOUTH ONCE DA BONNEI FOR MOOD TAKE 1/2 TABLET BY MOUTH [...] 03/21 12:00:00 AM EDT ORAL completed [facility] ([facility]) 20 mg 01/17/2020 12:00:00 AM EDT tablet [...] ONE TABLET BY MOUTH EVERY DAY TO ND EVENT BLOOD CLOTS SOLD: 07/12/2020 [facility] [...] miller Policy Miller Plan Information BLUE CROSS [id number] BLUE CROSS [id number] BLUE CROSS [id number] BLUE CROSS [id number] BLUE CROSS [id number] BLUE CROSS [id number] BLUE CROSS [id number] BLUE CROSS [id number] BLUE CROSS [id number] BLUE CROSS [id number] BLUE CROSS [id number] BLUE CROSS [id number] MEDICARE [id number] SELF [id number] A MEDICARE [id number] SELF [id number] BLUE CROSS [id number] [facility] Medicare Primary [id number] [facility] Medicare Primary [id number] [facility] Medicare Primary [id number] BLUE CROSS [id number] BLUE CROSS [id number] MEDICARE [id number] SELF [id number] MEDICARE [id number] SELF [id number] R36 BLUE CROSS [id number] SELF PAY BLUE CROSS [id number] MEDICARE [id number] SELF [id number] R36 SELF PAY COVID19 ONLY SELF SELF PAY BLUE CROSS [id number] MEDICARE [id number] SELF [id number] R36 COVID19 ONLY SELF BLUE CROSS [id number] MEDICARE [id number] SELF [id number] R36 SELF PAY MEDICARE [id number] SELF [id number] R36 BLUE CROSS [id number] SELF PAY [place] Part B [id number] Self [id number] MEDICARE [id number] SP [id number] R36 [place] 306/[id number] HU2 [id number] BCBS [place] PPO [id number] HU2 [id number] MEDICARE [id number] SP [id number] A COVID19 ONLY SELF Excellus Ind/Ppo/Hmo/Pos Medigap Part B [id number] Excellus Ind/Ppo/Hmo/Pos Medigap Part B [id number] Excellus Ind/Ppo/Hmo/Pos Medigap Part B [id number] BC/BS [place] Pos Health Maintenance Organization (HMO) [id number] Family Dependent [id number] [place] Primary [id number] Self [id number] BS Facets Medigap Part B [id number] Family Dependent [id number] Medicare Medicare Primary [id number] Self [id number] Excellus Ind/Ppo/Hmo/Pos Medigap Part B [id number] [facility] Medicare Primary [id number] Excellus Ind/Ppo/Hmo/Pos Medigap Part B [id number] National [employer]t Services Medicare Primary [id number] EXCELLUS BCBS B [id number] S [id number] MEDICARE C [id number] S [id number] A Excellus Ind/Ppo/Hmo/Pos Medigap Part B [id number] [place] [employer] Medicare Primary [id number] BCBS/Excellus Medigap Part B [id number] Family Dependent [id number] Medicare Natl Gov't Servi Medicare Primary [id number] Self [id number] Excellus Ind/Ppo/Hmo/Pos Medigap Part B [id number] [employer]t [employer] Medicare Primary [id number] Excellus Ind/Ppo/Hmo/Pos Medigap Part B [id number] [place] [employer] Medicare Primary [id number] Excellus Ind/Ppo/Hmo/Pos Medigap Part B [id number] [facility] Medicare Primary [id number] BS Facets Medigap Part B [id number] Family Dependent Medicare Medicare Primary [id number] Self Excellus Ind/Ppo/Hmo/Pos Medigap Part B [id number] Medicare Medicare Primary [id number] Excellus Ind/Ppo/Hmo/Pos Medigap Part B [id number] Medicare Medicare Primary [id number] BLUE CROSS [id number] BCBS [place] PPO 302/307 [id number] Problems, Conditions, and Diagnoses Code Display Name Description Problem Type Effective Dates Data Source(s) Z12.31 Encounter for screening mammogram for ma lignant neoplasm of breast Z12.31 - Encounter for screening mammogram for malignant neoplasm of breast Diagnosis 02/21/2021 11:08:00 AM EDT [facility] S83.231D Complex tear of medial menis cus, current injury, right knee, subsequent encounter S83.231D - Complex tear of medial menisc us, current injury, right knee, subsequent encounter Diagnosis 01/10/2021 06:11:00 PM EDT [facility] S83.231D Tear of medial meniscus of knee Tear of medial m eniscus of knee Problem 01/15/2021 12:00:00 AM EDT [facility] ([facility] S83.231A Current tear of medial cartilage AND/OR meniscus of knee Current tear of medial cartilage AND/OR meniscus of knee Problem 11/13/2020 12:00 :00 AM EDT [facility] ([facility] Surgeries/Procedures Procedure Description Date Indications Data Source(s) OFFICE OUTPATIENT VISIT 15 MINUTES 06/18/2021 12:00:00 AM EDT [facility] ([facility]) PHYSICIAN TELEPHONE EVALUATION 21-30 MIN 05/27/2021 12 :00:00 AM EDT [facility] ([facility]) Aspiration And/Or Injection Of Ganglion Cyst (S) Any Locatio n 04/09/2021 12:00:00 AM EDT [facility] ([facility] Electrocardiogram Complete 04/09/2021 12:00:00 AM EDT [facility] ([facility]) OFFICE OUTPATIENT VISIT 40 MINUTES 04/09/2021 12:00:00 AM EDT [facility] ([facility]) OFFICE OUTPATIENT VISIT 25 MINUTES 03/11/2021 12:00:00 AM EDT [facility] ([facility] OFFICE OUTPATIENT VISIT 25 MINUTES 03/02/2021 12:00:00 AM EDT [facility] ([facility]) Mammogram 02/21/2021 12:00:00 AM EDT M EDENT ([facility]) 2018: benign OFFICE OUTPATIENT VISIT 15 MINUTES 02/14/2021 12:00:00 AM EDT [facility] ([facility]) OFFICE OUTPATIENT VISIT 25 MINUTES 01/15/2021 12:00:00 AM EDT [facility] ([facility] OFFICE OUTPATIENT VISIT 15 MINUTES 11/13/2020 12:00:00 AM EDT [facility] ([facility] Results ID Date Data Source [id number] 04/26/2021 01:31:00 PM EDT [facility] ([facility]) Name Value Range Interpretation Code Description Data Ramonita rce(s) Supporting Document(s) Alanine aminotransferase [Enzymatic activity/volume] in Seru m or Plasma 34 U/L 12-78 Normal (applies to non-numeric results) [facility] ([facility]) ID Date Data Source [id number] 04/26/2021 01:31:00 PM EDT [facility] ([facility]) Name Value Range Interpretation Code Description Data Ramonita rce(s) Supporting Document(s) Laboratory test finding (navigational concept) 0.63 mg/dL 0 .55-1.30 Normal (applies to non-numeric results) [facility] ([facility]) Laboratory test finding (navigational concept) 11 mg/dL 7 -18 Normal (applies to non-numeric results) [facility] ([facility]) Laboratory test finding (navigational concept) 89 mg/dL 7 0-100 Normal (applies to non-numeric results) [facility] ([facility] ) Laboratory test finding (navigational concept) 137 meq/L 1 36-145 Normal (applies to non-numeric results) [facility] ([facility] ) Laboratory test finding (navigational concept) Laboratory test r esult Normal (applies to non-numeric results) [facility] ([facility]) <content>Units are mL/min/1.73 m2</content>
<content></content>
<content>Chronic Kidney Disease Staging per NKF:</content>
<content></content>
<content>Stage I & II GFR >=60 Normal to Mildly Decreased</content>
<content>Stage III GFR 30-59 Moderately Decreased</content>
<content>Stage IV GFR 15-29 Severely Decreased</content>
<content>Stage V GFR <15 Very Little GFR Left</content>
<content>ESRD GFR <15 on LOOM CLEANER</content>
<content></content> Laboratory test finding (navigational concept) 103 meq/L 9 8-107 Normal (applies to non-numeric results) [facility] ([facility] ) Laboratory test finding (navigational concept) 4.6 meq/L 3 .5-5.1 Normal (applies to non-numeric results) [facility] ([facility] ) Anion Gap 4 meq/L 8-16 Below low normal [facility] ([facility]) Laboratory test finding (navigational concept) 30 meq/L 2 1-32 Normal (applies to non-numeric results) [facility] ([facility]) Laboratory test finding (navigational concept) 9.2 mg/dL 8 .8-10.2 Normal (applies to non-numeric results) [facility] ([facility]) ID Date Data Source [id number] 04/26/2021 01:31:00 PM EDT [facility] ([facility]) Name Value Range Interpretation Code Description Data Ramonita rce(s) Supporting Document(s) Laboratory test finding (navigational concept) 33 mg/dL Normal (applies to non-numeric results) [facility] ([facility]) LDL Cholesterol 73 mg/dL Normal (applies to non-numeric results) [facility] ([facility]) Laboratory test finding (navigational concept) 155 mg/dL Normal (applies to non-numeric results) [facility] ([facility]) HDL Cholesterol 75 mg/dL Normal (applies to non-numeric results) [facility] ([facility]) Laboratory test finding (navigational concept) 2.066 Normal (applies to non- numeric results) [facility] ([facility]) Laboratory test finding (navigational concept) 80 mg/dL Normal (applies to non-numeric results) [facility] ([facility]) ID Date Data Source [id number] 04/24/2021 04:46:00 PM EDT [facility] ([facility]) Name Value Range Interpretation Code Description Data Ramonita rce(s) Supporting Document(s) Occult Blood, F I T Laboratory test result [facility] ([facility]) ID Date Data Source [id number] 04/22/2021 12:00:00 AM EDT [facility] Name Value Range Interpretation Code Description Data Ramonita rce(s) Supporting Document(s) SARS coronavirus 2 RNA Not Detected [facility] This lab was ordered by [facility] and rep orted by [facility]. ID Date Data Source [id number] 02/21/2021 11:33:00 AM EDT [facility] Patient Name: JENNY BURNETT Ordering Physician: Padilla Humphries MD : 1950 Age: 70 Sex: F Location: [facility] Exam Date: 02/21/21 ADM Status: REG REF Observation Date/Time: Order Information: MG SCREEN MAMMO/BLAS BILAT Accession Number: [id number] CPT: 95333 CLINICAL HISTORY: Screening COMPARISON: February 23, 2019, [...] Dictated Date/Time: 02/21/21 1133 Transcribed Date/Time: 02/21/21 113 Copy to: CC: Javier Ospina MD; Padilla Humphries MD [facility] - [facility] Imaging [facility] [address] [address] ph ph ph Name Value Range Interpretation Code Description Data Ramonita rce(s) Supporting Document(s) ID Date Data Source [id number] 01/11/2021 08:09:00 AM EDT [facility] Patient Name: Jenny Burnett [id number] Ordering Physician: Sly Cruz MD Account Numb er: [id number] : 1950 Age: 70 Sex: F Location: [facility] Exam Date: 01/10/21 ADM Status: REG REF Observation Date/Time: Order Information: MRI KNEE RIGHT W/O Accession Number: [id number] CPT: 79024 Indication: Right knee pain. Image Sequences: Sagittal [...] Dictated By: Eleni Olivera MD Dictated Date/Time: 01/11/21 0809 Transcribed Date/Time: 01/11/21 08 Copy to: CC:Sly Cruz MD; Padilla Humphries MD; Eleni Olivera MD Imaging - [facility] Imaging - [facility] Tarsha crowell [facility] [id number] [place] [address] ph ph ph Name Value Range Interpretation Code Description Data Ramonita rce(s) Supporting Document(s) ID Date Data Source [id number] 08/16/2020 12:00:00 AM EST [facility] Name Value Range Interpretation Code Description Data Ramonita rce(s) Supporting Document(s) SARS coronavirus 2 RNA [Presence] in Res piratory specimen by LYDIA with probe detection [facility] and reported by [facility]. ID Date Data Source [id number] 05/14/2020 09:06:00 AM EDT [facility] ([facility]) Name Value Range Interpretation Code Description Data Ramonita rce(s) Supporting Document(s) Laboratory test finding (navigational concept) Laboratory test result [facility] ([facility]) Sars Coronavirus-2, PCR Laboratory test result [facility] ([facility]) Negative results do not preclude SARS-Co V-2 infection and should not be used as the sole basis for patient management decisions. Per FDA guidelines, this test has been internally validated at [facility] Laboratory utilizing known standards and patient samples. Validation review by the FDA is pending. ID Date Data Source [id number] 05/14/2020 09:06:00 AM EDT [facility] Name Value Range Interpretation Code Description Data Ramonita rce(s) Supporting Document(s) SARS-CoV-2 (COVID-19) RNA [Presence] in Respiratory specimen by LYDIA with probe detection [facility] This lab was ordered by [facility] and reported by [facility]. ID Date Data Source [id number] 05/14/2020 11:07:00 PM EDT [facility] [id number] Name Value Range Interpretation Code Description Data Ramonita rce(s) Supporting Document(s) SARS Coronavirus-2, PCR Undetected Undetected [facility] Negative results do not preclude SARS-Co V-2 infection andshould not be used as the sole basis for patient managementdecisions.Per FDA guidelines, this test has been internally validatedat [facility] Laboratory utilizing known standards and patientsamples. Validation review by the FDA is pending. SARS Coronavirus-2, Source Nasopharyngeal [facility] ID Date Data Source [id number] 04/19/2020 05:25:00 PM EDT [facility] Patient Name: JENNY BURNETT Ordering Physician: Padilla Humphries MD : 1950 Age: 70 Sex: F Location: IMAGING - [facility] Exam Date: 04/19/201199 ADM Status: REG REF Observation Date/Time: Order Information: MRI KNEE RIGHT W/O Accession Number: [id number] CPT: 84915 Indication: RIGHT knee pain following twisting injury on April 16, 2020. Unable to bear weight. COMPARISON: April 18, 2020 radiographs. Technique: Funji 3.0 Jaky [id number]. Noncontrast MRI RIGHT knee. Report: ARTICULAR ALIGNMENT: [...] signed by Jamison Chambers MD in [place]> 04/19/20 1734 Dictated By: Jamison Chamebrs MD Dictated Date/Time: 04/19/20 172 Transcribed Date/Time: 04/19/20 172 Copy to: CC:Brian Brooks MD; Padilla Humphries MD; Jamison Chambers MD Imaging - [facility] Urgent [facility] Urgent [facility] [address] 10 [facility] [address] [address] ph ([phone]) ph ([phone]) ph ) Name Value Range Interpretation Code Description Data Ramonita rce(s) Supporting Document(s) Procedure Social History Code Duration Value Status Description Data Source(s ) Smoking 03/11/2021 12:00:00 AM EDT Patient is a former smoker completed Patient is a former smoker [facility] ([facility] Vital Signs ID Date Data Source UNK Name Value Range Interpretation Code Description Data Source(s) Body height 68 [in_i] 68 [in_i] [facility] 5'8" w/sandal Body weight 140.00 [lb_av] 140.00 [lb_av] [facility] ([facility]) w/sandals Body mass index (BMI) [Ratio] 21.3 kg/m2 21.3 k g/m2 [facility] ([facility]) [place] body weight 140 [lb_av] 140 [lb_av] [facility] ([facility]) Systolic blood pressure 120 mm[Hg] 120 mm[Hg] M [facility] ([facility]) Diastolic blood pressure 80 mm[Hg] 80 mm[Hg] [facility] ([facility]) Body temperature 98.5 [degF] 98.5 [degF] [facility] ([facility]) forehead Heart rate 68 /min 68 /min [facility] ([facility]) reg Respiratory rate 12 /min 12 /min [facility] ( [facility]) not laboured Body height 67.5 [in_i] 67.5 [in_i] [facility] ([facility] 5'7.50" Body weight 142.00 [lb_av] 142.00 [lb_av] MEDEN T ([facility] Systolic blood pressure 128 mm[Hg] 128 mm[Hg] M EDENT ([facility] Diastolic blood pressure 84 mm[Hg] 84 mm[Hg] MEDENT ([facility] Body temperature 97.7 [degF] 97.7 [degF] MEDENT ([facility] Heart rate 83 /min 83 /min MEDENT ([facility] Respiratory rate 18 /min 18 /min MEDENT ( [facility] Body mass index (BMI) [Ratio] 21.9 kg/m2 21.9 k g/m2 MEDENT ([facility] Body temperature 97.2 [degF] 97.2 [degF] MEDENT ([facility] Systolic blood pressure 124 mm[Hg] 124 mm[Hg] M EDENT ([facility]) ~ 1 week ago Diastolic blood pressure 72 mm[Hg] 72 mm[Hg] MEDENT ([facility]) ~ 1 week ago Body weight 142.00 [lb_av] 142.00 [lb_av] MEDEN T ([facility]) Systolic blood pressure 120 mm[Hg] 120 mm[Hg] M EDENT ([facility] Body weight 143.00 [lb_av] 143.00 [lb_av] MEDEN T ([facility] Diastolic blood pressure 62 mm[Hg] 62 mm[Hg] MEDENT ([facility] Body temperature 98.0 [degF] 98.0 [degF] MEDENT ([facility] Heart rate 65 /min 65 /min MEDENT ([facility] Body mass index (BMI) [Ratio] 22.1 kg/m2 22.1 k g/m2 MEDENT ([facility] Body height 67.5 [in_i] 67.5 [in_i] MEDENT ([facility] 5'7.50" Body height 68 [in_i] 68 [in_i] MEDENT ([facility] 5'8" Body weight 144.00 [lb_av] 144.00 [lb_av] MEDEN T ([facility] Heart rate 84 /min 84 /min MEDENT ([facility] Systolic blood pressure 122 mm[Hg] 122 mm[Hg] M EDENT ([facility] Diastolic blood pressure 74 mm[Hg] 74 mm[Hg] MEDENT ([facility] Respiratory rate 12 /min 12 /min MEDENT ( [facility] Body temperature 96.2 [degF] 96.2 [degF] MEDENT ([facility] Body mass index (BMI) [Ratio] 21.9 kg/m2 21.9 k g/m2 MEDENT ([facility] Body weight 139.00 [lb_av] 139.00 [lb_av] MEDEN T ([facility] Body height 67 [in_i] 67 [in_i] MEDENT ([facility] 5'7" Body temperature 97.5 [degF] 97.5 [degF] MEDENT ([facility] Body mass index (BMI) [Ratio] 21.8 kg/m2 21.8 k g/m2 MEDENT ([facility] Heart rate 66 /min 66 /min MEDENT ([facility] Systolic blood pressure 130 mm[Hg] 130 mm[Hg] M EDENT ([facility] Diastolic blood pressure 88 mm[Hg] 88 mm[Hg] MEDENT ([facility] Respiratory rate 18 /min 18 /min MEDENT ( [facility] ID Date Data Source [id number] 04/19/2020 05:38:00 PM EDT [facility] Name Value Range Interpretation Code Description Data Source(s) WEIGHT RECORDED 62.391728 kg 62.714949 kg [facility] WEIGHT RECORDED 62.916592 kg 62.359296 kg [facility]
[2021-06-19] MEDS ORDERED: methylPREDNISolone 125MG 2ML VIAL IV PRN (16:30)
[2021-06-19] MEDS ORDERED: diphenhydrAMINE 50MG/ML VIAL (J1200) IV PRN (16:30)
[2021-06-19] MEDS ORDERED: EPINEPHrine INJ 1 MG/ML 1ML AMP IM PRN (16:30)
[2021-06-19] MEDS ORDERED: ALBUTEROL 90 MCG/ACT 8GM HFA INHALER INH PRN (16:30)
[2021-06-19] MEDS ORDERED: BAMLANIVIMAB 700 MG, ETESEVIMAB 1,400 MG in NS 250 ML IV ONE (16:30)
[2021-06-19] MEDS ORDERED: ALBUTEROL SULFATE 2.5 MG/0.5 ML INH NEB SOLN INH PRN (16:30)
[2021-06-19] MEDS ORDERED: NS 1,000 ML IV SCH (16:30)
[2021-06-19] MEDS ORDERED: ACETAMINOPHEN TAB 650MG DOSE (2X325MG) PO PRN (16:30)
[2021-06-19 16:44] VITALS: BP 136/69
[2021-06-19] MEDS ORDERED: ATOR1TAB21 PO (16:44)
[2021-06-19] MEDS ORDERED: XARE20TA PO (16:44)
[2021-06-19] MEDS ORDERED: CELE10TA PO (16:44)
[2021-06-19] MEDS ORDERED: LISI20TA33 PO (16:44)
[2021-06-19] MEDS ORDERED: CYCL5TAB PO (16:44)
[2021-06-19] MEDS ORDERED: DICL20GE TP (16:44)
== END 2021-06-19 16:46 | disposition home or self-care (01) ==
LOC: M ED 11:53
DX: U07.1 COVID-19 (principal); Z79.01 Long term (current) use of anticoagulants; Z87.891 Personal history of nicotine dependence

== ENCOUNTER 2021-06-21 12:02 | Outpatient (CLI) | payer MEDICARE, BC ==
--- NOTE | 2021-06-19 16:46 | IPNPDOC ---
Subjective Date Seen The patient was seen on 06/19/21. Subjective Chief Complaint/HPI Mrs. Brown is a 71 year old female who had Pfizer vaccine x2 who presents with COVID like symptoms. She was vaccinated with Pfizer vaccine twice in October 2020. Recently, her grandchild came home from school ill. Following her grandchild's illness, their son fell ill. Then for the past few days, patient started to have COVID symptoms which included headache, loss of taste/smell, loss of appetite, fatigue, dyspnea on exertion and cough. She was tested positive for COVID at urgent care on 06/17/21. She decided to come to the ED for monoclonal antibodies. She signed consent and will be given monoclonal a ntibodies. Past Medical History 1. History of DVT 2. Hypertension 3. Osteopenia Past Surgical History 1. Breast biopsy x2 2. Hand surgery (3rd finger of right hand) 3. Foot surgery (Left great toe) Social History Tobacco use: Former smoker Alcohol use: Occasional Recreational drugs: Denies Family History Father has history of parkinsonism Constitutional: Reports: Chills, Fever, Fatigue ENT: Reports: Head Aches Skin: Denies: Rash Pulmonary: Reports: Dyspnea (on exertion), Cough Cardiovascular: Denies: Chest Pain Gastrointestinal: Denies: Abdominal Pain Genitourinary: Denies: Dysuria Hematologic: Denies: Bruising Musculoskeletal: Reports: Back Pain Neurological: Denies: Numbness Objective Physical Examination General Exam: Positive: Alert, Cooperative Eye Exam: Positive: EOMI; Negative: Sclera icteric ENT Exam: Positive: Atraumatic Neck Exam: Positive: Supple Chest Exam: Positive: Clear to auscultation Heart Exam: Positive: Rate Normal, Regular Rhythm Abdomen Exam: Positive: Normal bowel sounds, Soft; Negative: Tenderness Extremity Exam: Negative: Edema Neuro Exam: Positive: Normal Speech Psych Exam: Positive: Mental status NL, Mood NL Assessment /Plan Plan/VTE VTE Prophylaxis Ordered?: No (outpatient proceedure) Plan 1. COVID infection -Patient had Pfizer vaccine x2 in October 2020. -Most likely passed on by family member -Patient not hypoxic, but at risk of progression. Patient signed consent form for monoclonal antibodies Patient should follow up with PCP after receiving monoclonal antibodies. KATERIN WYNN DO Jun 19, 2021 16:45
[~2021-06-21] VITALS: Ht 170.2 cm; Wt 63.0 kg
[~2021-06-21 12:02] MED LIST: ACETAMINOPHEN TAB 650MG DOSE (2X325MG) PO PRN; ALBUTEROL 90 MCG/ACT 8GM HFA INHALER INH PRN; ALBUTEROL SULFATE 2.5 MG/0.5 ML INH NEB SOLN INH PRN; ATOR1TAB21 PO; BAMLANIVIMAB 700 MG, ETESEVIMAB 1,400 MG in NS 250 ML IV ONE; CELE10TA PO; CYCL5TAB PO; DICL20GE TP; EPINEPHrine INJ 1 MG/ML 1ML AMP IM PRN; LISI20TA33 PO; NS 1,000 ML IV SCH; XARE20TA PO; diphenhydrAMINE 50MG/ML VIAL (J1200) IV PRN; methylPREDNISolone 125MG 2ML VIAL IV PRN
[2021-06-21] MEDS ORDERED: BAMLANIVIMAB 700 MG, ETESEVIMAB 1,400 MG in NS 250 ML IV ONE (13:30)
[2021-06-21 14:11] VITALS: BP 138/76
[2021-06-21 14:44] VITALS: BP 115/60
[2021-06-21 15:20] VITALS: BP 131/61
[2021-06-21 16:16] VITALS: BP 134/77
== END 2021-06-21 16:20 | disposition home or self-care (01) ==
LOC: M OPCLI4PR 12:02
PROVIDERS: ATTEND Internal Medicine
DX: U07.1 COVID-19 (principal)

== ENCOUNTER → 2023-01-22 | Outpatient (CLI) | payer MEDICARE, BC ==
[~2023-01-22] MED LIST changes: -ACETAMINOPHEN TAB 650MG DOSE (2X325MG) PO PRN; -ALBUTEROL 90 MCG/ACT 8GM HFA INHALER INH PRN; -ALBUTEROL SULFATE 2.5 MG/0.5 ML INH NEB SOLN INH PRN; -BAMLANIVIMAB 700 MG, ETESEVIMAB 1,400 MG in NS 250 ML IV ONE; -EPINEPHrine INJ 1 MG/ML 1ML AMP IM PRN; -NS 1,000 ML IV SCH; -diphenhydrAMINE 50MG/ML VIAL (J1200) IV PRN; -methylPREDNISolone 125MG 2ML VIAL IV PRN
== END ==
LOC: M WHC 09:05
PROVIDERS: ATTEND Family Medicine
DX: M85.89 Other specified disorders of bone density and structure, multiple sites (principal); M85.851 Other specified disorders of bone density and structure, right thigh; M85.852 Other specified disorders of bone density and structure, left thigh

== ENCOUNTER → 2023-01-22 | Outpatient (CLI) | payer MEDICARE, BC | LOC: M PLAIMG 09:08 | PROVIDERS: ATTEND Orthopaedic Surgery | DX: M47.816 Spondylosis without myelopathy or radiculopathy, lumbar region (principal); M85.89 Other specified disorders of bone density and structure, multiple sites; M85.851 Other specified disorders of bone density and structure, right thigh; M85.852 Other specified disorders of bone density and structure, left thigh ==

== ENCOUNTER → 2023-04-02 | Outpatient (CLI) | payer MEDICARE, BC | LOC: M WHC 12:34 | DX: Z12.31 Encounter for screening mammogram for malignant neoplasm of breast (principal); N63.11 Unspecified lump in the right breast, upper outer quadrant; N63.21 Unspecified lump in the left breast, upper outer quadrant ==

== ENCOUNTER → 2023-04-16 | Outpatient (CLI) | payer MEDICARE, BC | LOC: M WHC 08:37 | DX: R92.8 Other abnormal and inconclusive findings on diagnostic imaging of breast (principal) | CPT/HCPCS: 76641; 76642; 77065; G0279 ==

== ENCOUNTER → 2023-04-29 | Outpatient (CLI) | payer MEDICARE, BC | LOC: M WHC 15:12 | PROVIDERS: ATTEND Surgery | DX: R92.8 Other abnormal and inconclusive findings on diagnostic imaging of breast (principal) ==

== ENCOUNTER → 2023-04-29 | Outpatient (REF) | payer MEDICARE, BC | LOC: M SFHCWAGY 17:46 | PROVIDERS: ATTEND Surgery | DX: C50.411 Malignant neoplasm of upper-outer quadrant of right female breast (principal) ==

== ENCOUNTER → 2023-05-08 | Outpatient (CLI) | payer MEDICARE, BC ==
[2023-05-08 14:17] LABS: BLOOD UREA NITROGEN 9 MG/DL (9-23); CALCIUM LEVEL 9.5 MG/DL (8.3-10.6); CARBON DIOXIDE LEVEL 29 MMOL/L (20-31); CHLORIDE LEVEL 103 MMOL/L (98-107); CREATININE FOR GFR 0.76 MG/DL (0.55-1.30); GLOMERULAR FILTRATION RATE > 60.0 (>39); GLUCOSE, FASTING 98 MG/DL (74-106); POTASSIUM SERUM 5.1 MMOL/L (3.5-5.1); SODIUM LEVEL 139 MMOL/L (136-145)
== END ==
LOC: M PLALAB 10:40
PROVIDERS: ATTEND Surgery
DX: C50.911 Malignant neoplasm of unspecified site of right female breast (principal)

== ENCOUNTER → 2023-05-19 | Outpatient (CLI) | payer MEDICARE, BC ==
[~2023-05-19] MED LIST changes: +PROHANCE 279.3MG/ML 15ML VIAL As Ordered ONE
== END ==
LOC: M RAD 13:39
PROVIDERS: ATTEND Surgery
DX: C50.911 Malignant neoplasm of unspecified site of right female breast (principal)
CPT/HCPCS: A9576; C8908

== ENCOUNTER → 2023-08-28 | Outpatient (CLI) | payer MEDICARE, BC ==
[~2023-08-28] MED LIST changes: +ISOVUE-370 76% 100ML VIAL ONE; -PROHANCE 279.3MG/ML 15ML VIAL As Ordered ONE
== END ==
LOC: M PLAIMG 08:10
PROVIDERS: ATTEND Internal Medicine Hematology & Oncology
DX: C50.811 Malignant neoplasm of overlapping sites of right female breast (principal); R91.1 Solitary pulmonary nodule; K76.9 Liver disease, unspecified
CPT/HCPCS: 71260; Q9967

== ENCOUNTER → 2024-02-03 | Outpatient (CLI) | payer MEDICARE ==
[~2024-02-03] MED LIST changes: -ISOVUE-370 76% 100ML VIAL ONE
== END ==
LOC: M WHC 09:03
PROVIDERS: ATTEND Physician Assistant Medical
DX: Z79.899 Other long term (current) drug therapy (principal); Z13.820 Encounter for screening for osteoporosis

== ENCOUNTER → 2024-04-11 | Outpatient (CLI) | payer MEDICARE ==
[~2024-04-11] MED LIST changes: +PROHANCE 279.3MG/ML 15ML VIAL ONE
== END ==
LOC: M PLAIMG 10:03
PROVIDERS: ATTEND Orthopaedic Surgery
DX: M47.896 Other spondylosis, lumbar region (principal); M48.061 Spinal stenosis, lumbar region without neurogenic claudication
CPT/HCPCS: 72158; A9576

== ENCOUNTER → 2025-04-26 | Outpatient (CLI) | payer MEDICARE ==
[~2025-04-26] MED LIST changes: -CYCL5TAB PO; +CYCL5TAB4 PO; -PROHANCE 279.3MG/ML 15ML VIAL ONE
== END ==
LOC: M WUC 14:10
PROVIDERS: ATTEND Physician Assistant
DX: S20.20XA Contusion of thorax, unspecified, initial encounter (principal); Z95.828 Presence of other vascular implants and grafts; X58.XXXA Exposure to other specified factors, initial encounter; Y92.9 Unspecified place or not applicable; Y93.9 Activity, unspecified; Y99.9 Unspecified external cause status

== ENCOUNTER → 2025-07-11 | Outpatient (CLI) | payer MEDICARE, BC ==
[2025-07-11 13:47] LABS: BASO # 0.1 10^3/uL (0.0-0.2); BASO % 0.9 % (0.0-1.0); EOS # 0.3 10^3/uL (0.0-0.5); EOS % 3.9 % (0.0-3.0); LYMPH # 1.7 10^3/uL (1.5-5.0); LYMPH % 26.4 % (24.0-44.0); MONO # 0.6 10^3/uL (0.0-0.8); MONO % 9.3 % (2.0-8.0); NEUTROPHILS # 3.7 10^3/uL (1.5-8.5); NEUTROPHILS % 59.2 % (36.0-66.0); PLATELET COUNT, AUTOMATED 208 10^3/uL (150-450)
[2025-07-11 14:19] LABS: ALT/SGPT 19.0 U/L (7.0-40); AST/SGOT 21.0 U/L (<34); CALCIUM LEVEL 9.9 MG/DL (8.3-10.6); CARBON DIOXIDE LEVEL 31.0 MMOL/L (20-31); CHLORIDE LEVEL 103.0 MMOL/L (98-107); CREATININE FOR GFR 0.99 MG/DL (0.55-1.30); GLOMERULAR FILTRATION RATE 59.1 (>39); POTASSIUM SERUM 5.0 MMOL/L (3.5-5.1); SODIUM LEVEL 142.0 MMOL/L (136-145)
== END ==
LOC: M LAB 13:04
PROVIDERS: ATTEND Internal Medicine Hematology & Oncology
DX: C50.411 Malignant neoplasm of upper-outer quadrant of right female breast (principal); Z17.0 Estrogen receptor positive status [ER+]